=== PATIENT | female | born 1935 | race Caucasian/White ===

== ENCOUNTER 2017-03-26 21:13 | Inpatient (IN) ==
[2017-03-26 22:03] LABS: Basophils % 0.4 %; Eosinophils # 0.2 K/mcL (0.0-0.6); Eosinophils % 2.5 %; Hematocrit 35.8 % (35.3-44.9); Hemoglobin 11.5 g/dL (11.5-15.4); Immature Granulocytes % 0.1 % (0-4); Lymphocytes # 1.3 K/mcL (0.6-4.6); Lymphocytes % 18.5 %; Mean Corpuscular HGB Conc 32.1 g/dL (31.6-35.5); Mean Corpuscular Hemoglobin 29.3 pg (28.0-33.3); Mean Corpuscular Volume 91.1 fL (83.0-100.0); Monocytes # 0.6 K/mcL (0.0-1.3); Monocytes % 7.6 %; Neutrophils # 5.1 K/mcL (1.6-8.9); Platelet Count 179 K/mcL (140-400); Red Blood Count 3.93 M/mcL (3.82-4.97); Red Cell Distribution Width 13.3 % (11.5-14.5); Segmented Neutrophils % 70.9 %
[2017-03-26 22:10] LABS: Bilirubin,Urine Moderate (Negative); Blood,Urine Negative (Negative); Clarity,Urine Cloudy (Clear); Color,Urine Dark Yellow (Yellow); Glucose,Urine (UA) Normal (Normal); Ketones,Urine Negative (Negative); Leukocyte Esterase,Urine Moderate (Negative); Nitrite,Urine Positive (Negative); Protein,Urine Negative (Neg-Trace); Specific Gravity,Urine 1.017 (1.010-1.025); Urobilinogen,Urine Normal (Normal)
[2017-03-26 22:13] LABS: Bacteria,Urine Many per hpf (None-Few); Hyaline Casts,Urine None Seen per lpf (None-Few); RBC,Urine 0-3 per hpf (0-3)
[2017-03-26 22:19] LABS: Alanine Aminotransferase 329 Units/L (0-55); Albumin 3.3 g/dL (3.5-5.0); Albumin/Globulin Ratio 1.1 (1.1-2.2); Alkaline Phosphatase 511 Units/L (38-126); Aspartate Amino Transferase 144 Units/L (5-34); BUN/Creatinine Ratio 22 (6-26); Bilirubin,Direct 3.8 mg/dL (0.0-0.5); Bilirubin,Indirect 1.2 mg/dL (0.0-1.2); Blood Urea Nitrogen 18 mg/dL (7-20); Calcium 9.5 mg/dL (8.6-10.8); Carbon Dioxide 26 mEq/L (19-29); Chloride 104 mEq/L (98-109); Globulin 3.1 g/dL (2.4-3.5); Glucose 183 mg/dL (70-99); Lipase 356 Units/L (8-78); Osmolality,Calculated 297 (280-300); Sodium 140 mEq/L (136-145); Total Protein 6.4 g/dL (6.0-8.3); eGFR For African Americans > 60 (> 60); eGFR For Non-African Americans > 60 (> 60)
[2017-03-26 22:20] LABS: Squamous Epithelial Cell,Urine Few per lpf (None-Few)
--- NOTE | 2017-03-26 23:14 | Emergency Department Note ---
Disposition Clinical Impression: Pancreatitis, Transaminitis, Hyperbilirubinemia, Pancreatic mass, UTI (urinary tract infection) Disposition: Admitted As Inpatient Condition: Fair Time of Disposition: 01:26 Abdominal Pain HPI - General Chief Complaint: ED Abdominal Pain Stated Complaint: Upper ABD Pain Time Seen by Provider: 03/26/17 23:01 Source: patient Mode of arrival: ambulatory Limitations: no limitations Nursing Notes Reviewed: Yes Vital Signs Reviewed: Yes - History of Present Illness HPI Narrative: Patient presents to the ED with the chief complaint of epigastric abdominal pain. Onset was gradual about 4 weeks ago and has been progressively worsening. States it starts in the epigastrium, radiates up into her chest and through to her back. Associated with nausea and vomiting. Reports a last 3 days. She has not been able to eat or drink anything without causing excruciating pain. Pain is also worse with movement. No fever. Has had some weight loss. States that she just could not take the pain anymore. Has had a previous cholecystectomy but no other surgeries. No history of malignancy. No history of diabetes or coronary artery disease. No history of alcoholism or pancreatitis Pain Scale: 9 - Related Data Home Medications Medication Instructions Recorded Confirmed Benazepril HCl [Lotensin] 20 mg PO DAILY 03/27/17 03/27/17 Co Q-10 1 tab PO DAILY 03/27/17 03/27/17 Labetalol HCl 200 mg PO BID 03/27/17 03/27/17 Levothyroxine [Synthroid] 75 mcg PO 0630 03/27/17 03/27/17 Multivitamin 1 tab PO DAILY 03/27/17 03/27/17 amLODIPine [Norvasc] 5 mg PO BID 03/27/17 03/27/17 Allergies Allergy/AdvReac Type Severity Reaction Status Date / Time codeine AdvReac Vomiting Verified 03/26/17 21:33 All systems ED: reviewed and negative except as stated. Constitutional: Denies: fever Cardiovascular: Denies: chest pain Respiratory: Denies: dyspnea Gastrointestinal: Reports: abdominal pain, nausea, vomiting. Denies: diarrhea, constipation Abdominal Pain PMH - Past Medical History Medical history: Reports: GERD, hypertension Female Surgical History: Reports: cholecystectomy Psychiatric history: Reports: anxiety - Social History Smoking status: Never smoker Alcohol use: Reports: none Drug use: Reports: none Physical Exam - General Limitations: no limitations General appearance: alert, in no apparent distress, other (Patient appears pale and ill) - Head Head exam: atraumatic, normocephalic, normal inspection - Eye Eye exam: Present: normal appearance, PERRL, EOMI - ENT ENT exam: mucous membranes dry - Respiratory Respiratory exam: Present: normal lung sounds bilaterally - Cardiovascular Cardiovascular exam: Present: regular rate, normal rhythm, normal heart sounds - Abdominal Exam Abdominal exam: Present: soft, tenderness, distention, normal bowel sounds. Absent: guarding, rebound Abdominal tenderness: Present: epigastrium, moderate - Extremities Exam Extremities exam: Present: normal inspection, full ROM. Absent: tenderness, pedal edema - Neurological Exam Neurological exam: Present: alert, oriented X3 - Psychiatric Psychiatric exam: Present: normal affect, normal mood - Skin Skin exam: Present: warm, dry, intact, normal color Course Course Narrative: Patient presenting with concerns of her pancreatitis. Labs do show an elevated lipase, but also transaminitis and hyperbilirubinemia. We will obtain contrasted CT of abdomen and pelvis to evaluate for other etiologies such as obstructing stone versus tumor. Patient will be admitted to the hospital. IV fluids and analgesia. 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 We will admit for further workup and intractable nausea and vomiting. Has associated hyperbilirubinemia, transaminitis, elevated lipase. Vital Signs Temperature 99.5 F 03/26/17 21:29 Pulse Rate 77 03/26/17 21:29 Respiratory Rate 18 03/26/17 21:29 Blood Pressure 143/81 03/26/17 21:29 O2 Sat by Pulse Oximetry 97 03/26/17 21:29 Temperature 99.5 F 03/26/17 21:29 Pulse Rate 103 03/27/17 01:25 Respiratory Rate 16 03/27/17 01:25 Blood Pressure 141/66 03/27/17 01:25 O2 Sat by Pulse Oximetry 97 03/27/17 01:25 Oxygen Delivery Oxygen Delivery Room Air Abdominal Pain - Medical Records Medical records reviewed: Yes I reviewed the patient's medical records. - Lab Data Lab results reviewed: Yes I reviewed the patient's lab results. Result diagrams: 03/26/17 21:52 03/26/17 21:52 Lab Results 03/26/17 03/26/17 03/26/17 Range/Units 21:52 21:52 21:52 WBC 7.2 (4.3-11.1) K/mcL RBC 3.93 (3.82-4.97) M/mcL Hgb 11.5 (11.5-15.4) g/dL Hct 35.8 (35.3-44.9) % MCV 91.1 (83.0-100.0) fL MCH 29.3 (28.0-33.3) pg MCHC 32.1 (31.6-35.5) g/dL RDW 13.3 (11.5-14.5) % Plt Count 179 (140-400) K/mcL MPV 12.0 (9.4-12.4) fL Immature Gran % 0.1 (0-4) % Seg Neutrophils % 70.9 % Lymphocytes % 18.5 % Monocytes % 7.6 % Eosinophils % 2.5 % Basophils % 0.4 % Neutrophils # 5.1 (1.6-8.9) K/mcL Lymphocytes # 1.3 (0.6-4.6) K/mcL Monocytes # 0.6 (0.0-1.3) K/mcL Eosinophils # 0.2 (0.0-0.6) K/mcL Basophils # 0.0 (0.0-0.2) K/mcL Sodium 140 (136-145) mEq/L Potassium 4.0 (3.5-4.5) mEq/L Chloride 104 (98-109) mEq/L Carbon Dioxide 26 (19-29) mEq/L BUN 18 (7-20) mg/dL Creatinine 0.82 (0.57-1.11) mg/dL Est GFR ( Amer) > 60 (> 60) Est GFR (Non-Af Amer) > 60 (> 60) BUN/Creatinine Ratio 22 (6-26) Glucose 183 H (70-99) mg/dL Calculated Osmolality 297 (280-300) Calcium 9.5 (8.6-10.8) mg/dL Total Bilirubin 5.0 H (0.2-1.2) mg/dL Direct Bilirubin 3.8 H (0.0-0.5) mg/dL Indirect Bilirubin 1.2 (0.0-1.2) mg/dL AST 144 H (5-34) Units/L ALT 329 H (0-55) Units/L Alkaline Phosphatase 511 H (38-126) Units/L Troponin I 0.03 (0-0.03) ng/mL Serum Total Protein 6.4 (6.0-8.3) g/dL Albumin 3.3 L (3.5-5.0) g/dL Globulin 3.1 (2.4-3.5) g/dL Albumin/Globulin Ratio 1.1 (1.1-2.2) Lipase 356 H (8-78) Units/L Urine Color (Yellow) Urine Clarity (Clear) Urine pH (5.0-8.0) pH Units Ur Specific [place] (1.010-1.025) Urine Protein (Neg-Trace) mg/dL Urine Glucose (UA) (Normal) mg/dL Urine Ketones (Negative) mg/dL Urine Blood (Negative) Urine Nitrite (Negative) Urine Bilirubin (Negative) Urine Urobilinogen (Normal) mg/dL Ur Leukocyte Esterase (Negative) Urine Microscopic RBC (0-3) per hpf Urine Microscopic WBC (0-3) per hpf Ur Squamous Epith Cells (None-Few) per lpf Urine Bacteria (None-Few) per hpf Hyaline Casts (None-Few) per lpf Ur Culture Indicated? (NO) 03/26/17 Range/Units 21:56 WBC (4.3-11.1) K/mcL RBC (3.82-4.97) M/mcL Hgb (11.5-15.4) g/dL Hct (35.3-44.9) % MCV (83.0-100.0) fL MCH (28.0-33.3) pg MCHC (31.6-35.5) g/dL RDW (11.5-14.5) % Plt Count (140-400) K/mcL MPV (9.4-12.4) fL Immature Gran % (0-4) % Seg Neutrophils % % Lymphocytes % % Monocytes % % Eosinophils % % Basophils % % Neutrophils # (1.6-8.9) K/mcL Lymphocytes # (0.6-4.6) K/mcL Monocytes # (0.0-1.3) K/mcL Eosinophils # (0.0-0.6) K/mcL Basophils # (0.0-0.2) K/mcL Sodium (136-145) mEq/L Potassium (3.5-4.5) mEq/L Chloride (98-109) mEq/L Carbon Dioxide (19-29) mEq/L BUN (7-20) mg/dL Creatinine (0.57-1.11) mg/dL Est GFR ( Amer) (> 60) Est GFR (Non-Af Amer) (> 60) BUN/Creatinine Ratio (6-26) Glucose (70-99) mg/dL Calculated Osmolality (280-300) Calcium (8.6-10.8) mg/dL Total Bilirubin (0.2-1.2) mg/dL Direct Bilirubin (0.0-0.5) mg/dL Indirect Bilirubin (0.0-1.2) mg/dL AST (5-34) Units/L ALT (0-55) Units/L Alkaline Phosphatase (38-126) Units/L Troponin I (0-0.03) ng/mL Serum Total Protein (6.0-8.3) g/dL Albumin (3.5-5.0) g/dL Globulin (2.4-3.5) g/dL Albumin/Globulin Ratio (1.1-2.2) Lipase (8-78) Units/L Urine Color Dark Yellow (Yellow) Urine Clarity Cloudy A (Clear) Urine pH 7.0 (5.0-8.0) pH Units Ur Specific [place] 1.017 (1.010-1.025) Urine Protein Negative (Neg-Trace) mg/dL Urine Glucose (UA) Normal (Normal) mg/dL Urine Ketones Negative (Negative) mg/dL Urine Blood Negative (Negative) Urine Nitrite Positive A (Negative) Urine Bilirubin Moderate H (Negative) Urine Urobilinogen Normal (Normal) mg/dL Ur Leukocyte Esterase Moderate H (Negative) Urine Microscopic RBC 0-3 (0-3) per hpf Urine Microscopic WBC 3-5 H (0-3) per hpf Ur Squamous Epith Cells Few (None-Few) per lpf Urine Bacteria Many H (None-Few) per hpf Hyaline Casts None Seen (None-Few) per lpf Ur Culture Indicated? YES A (NO) - Radiology Data Radiology results reviewed: Yes I reviewed the patient's radiology results. Chest X-Ray 03/26/17 21:34 IMPRESSION: No acute disease. Hiatal hernia. D/ / Carlos Leahy MD / Carlos Leahy MD Interpreting Provider: Carlos Leahy MD - EKG Data EKG attestation: Yes I reviewed and interpreted this EKG. EKG results narrative: Sinus rhythm, rate 73, IN interval 175, QRS 100, QTC 424, left axis deviation, no acute ischemic changes. S.B.A.RJorge Luis - S.Eleni.Avila Situation: Demographics, MOA Background: Presenting Complaint, Relevant PMH, Meds, & Allergies Assessment: Vital Signs, Course and respsone to treatment, Exam Concerns, Patient/Family Expectation, Pertinant Lab Results, Outstanding Labs Recommendation: Barrier(s) to disposition, Recommendation based on pending studies, treatments, or consults S.B.A.RJorge Luis Report Given to: Dr. Jerman Barrett Repor Time: 01:27 Attestation Statement - Attestation Attestation: I, Trenton Rothman MD, personally evaluated this patient and discussed their management with the resident physician. I reviewed the resident's note and agree with the documented findings, medical decision making, and plan of care. 81-year-old female presents to the emergency department with a complaint of epigastric abdominal pain which started about 4 weeks ago and has gotten progressively worse. Pain is been much worse over the past 3 days. The pain radiates to her back. She complains of a lot of nausea but no actual vomiting. No diarrhea. No melena, hematemesis, or hematochezia. No urinary symptoms. She has possibly had some intermittent fever. Patient also admits to some weight loss over the past several months. On examination patient is a well-developed well-nourished elderly female in no acute distress. She is alert and oriented 3. There is no cyanosis or diaphoresis. Breath sounds are clear and equal bilaterally. Heart regular rate and rhythm. Abdomen is soft with normal bowel sounds. There is moderate epigastric tenderness on direct palpation. No guarding or rebound tenderness. Labs reviewed. Elevated lipase and hepatic enzymes. CT obtained and shows a mass in the head of the pancreas. The hospitalist, Dr. Stoll, was consulted and accepted admission of the patient.
[2017-03-26] MEDS ORDERED: 0.9 % Sodium Chloride 1,000 ML IVC ONE (23:15)
[2017-03-26] MEDS ORDERED: Ondansetron 4 MG/2 ML VIAL IVP ONE (23:15)
[2017-03-26] MEDS ORDERED: *HR* HYDROmorphone (PF) 1 MG/ML SYRINGE IVP ONE (23:15)
[2017-03-27] MEDS ORDERED: 0.9 % Sodium Chloride 1,000 ML IVC ONE (01:30)
[2017-03-27] MEDS ORDERED: Ondansetron 4 MG/2 ML VIAL IVP ONE (01:30)
[2017-03-27] MEDS ORDERED: Acetaminophen 325 MG TABLET PO PRN (02:14)
[2017-03-27] MEDS ORDERED: Naloxone 0.4 MG/ML INJ IVP PRN (02:14)
[2017-03-27] MEDS: *HR* HYDROmorphone (PF) 1 MG/ML SYRINGE IVP PRN ×5 (03:25→22:56)
[2017-03-27] MEDS: 0.9 % Sodium Chloride 1,000 ML IVC SCH ×3 (03:28→20:11)
--- NOTE | 2017-03-27 04:39 | Internal Med History&Physical ---
<Ralph Duque - Last Filed: 03/27/17 05:37> Date of Encounter: 03/27/17 Time of Encounter: 02:45 Assessment and Plan (1) Pancreatic mass Current visit: Yes Status: Acute Patient presents with findings concerning for pancreatitis and found to have pancreatic mass on CT with contrast of her abdomen. Patient does describe concerning symptoms including weight loss, night sweats, malaise, and chills that persisted for a significant amount of time. There is evidence, bile duct dilation, though no increased bilirubin seen on exams. We will consult GI for evaluation and possible ERCP for biliary stenting and/or pancreatic mass biopsy We will consult oncology for assistance in evaluation and management for suspected adenocarcinoma of pancreas We will treat acute pancreatitis with fluids, nausea, and pain control (2) Pancreatitis Current visit: Yes Status: Acute Patient reports abdominal pain, nausea and vomiting. Lipase was elevated to 356. Findings consistent with acute pancreatitis. Patient's current pancreatitis likely due to pancreatic mass. Patient will be made nothing by mouth Pain medication with hydromorphone Supplemental IV fluids at 100 mL an hour Pantoprazole Ondansetron for nausea Qualifiers: Chronicity: acute Pancreatitis type: other Acute pancreatitis complication: unspecified Qualified Code(s): K85.80 - Other acute pancreatitis without necrosis or infection (3) UTI (urinary tract infection) Current visit: Yes Status: Acute Patient's UA consistent with UTI with large amount of nitrites and moderate amount of leukoesterase. Patient will be continued on ceftriaxone daily Qualifiers: Urinary tract infection type: acute cystitis Hematuria presence: without hematuria Qualified Code(s): N30.00 - Acute cystitis without hematuria (4) DVT prophylaxis Current visit: Yes Status: Acute Due to possibility of ERCP with stent placement and/or biopsies will hold chemical prophylaxis and start intermittent pneumatic compression devices Internal Medicine - H&P: HPI Chief complaint: Nausea and abdominal pain Admitted From: Home Plans for Post Hospital Care: Home History of present illness: Ms. Hopson is a 81 year old female with prior medical history of hypertension , GERD, cholecystectomy who presents to [facility] after progressive worsening of epigastric pain and nausea. She states that this has been going on for almost a month now but that has gotten significantly worse in the last week. She reports that for the last 3-4 days she has not been able to eat or drink anything on account of her nausea and epigastric pain. She describes the pain as severe and beginning in the epigastric region radiating up her chest and down to her. Umbilical area. Although she has had nausea and emesis, she denies any hematemesis or coffee-ground emesis. Although this is been going on for 4 weeks, she reports that for the past several months she has been feeling general malaise and reports having a unintentional 15 pound weight loss or last 4 months. She also reports numbness timeframe having had more frequent episodes of night sweats and chills. More recently she also describes having tori-colored stools. She denies fevers, chest pain, shortness of breath, dysuria, hematochezia, melena. Past Med Surg Social Fam HX - Past Medical History Medical history: GERD, hypertension Psychiatric history: anxiety - Social History Smoking Status: Never smoker Smokeless Tobacco Status: No Alcohol use: none Drug use: none Internal Medicine - H&P: Meds Benazepril HCl [Lotensin] 20 mg PO DAILY 03/27/17 [History] Co Q-10 1 tab PO DAILY 03/27/17 [History] Labetalol HCl 200 mg PO BID 03/27/17 [History] Levothyroxine [Synthroid] 75 mcg PO 0630 03/27/17 [History] Multivitamin 1 tab PO DAILY 03/27/17 [History] amLODIPine [Norvasc] 5 mg PO BID 03/27/17 [History] cloNIDine HCl [Clonidine HCl] 0.3 mg PO HS 03/27/17 [History] 3 Allergy/AdvReac Type Severity Reaction Status Date / Time codeine AdvReac Vomiting Verified 03/26/17 21:33 All Systems PM: Gen: Denies fever, reports chills, reports weight loss, reports weakness today, denies fatigue CV: Reports chest pain radiating from the epigastrium, denies exertional chest pain or dyspnea, denies palpitations Resp: Denies shortness of breath, denies dyspnea, denies pleuritic pain, denies coughing, denies changes in phlegm production, denies wheeze GI: Reports nausea, denies vomiting, reports abdominal pain, denies constipation , denies diarrhea, reports tori-colored stools, denies hematochezia, denies melena MSK: Denies muscle weakness Neuro: Denies headache, denies confusion, denies focal weakness, denies numbness , denies tingling, denies vision changes Skin: Denies bruising, denies rash : Denies flank pain, denies dysuria, denies hematuria - Constitutional Vitals: Temp Pulse Resp BP Pulse Ox 97.6 F 64 16 179/80 97 03/27/17 03:26 03/27/17 03:26 03/27/17 03:26 03/27/17 03:26 03/27/17 03:26 Exam: General: Cooperative, pleasant, no acute distress, alert and oriented 3, answers questions appropriately HEENT: Normocephalic, atraumatic, neck supple, trachea midline, Conjunctiva pink , sclera anicteric, PERRL, oral mucosa dry, no orophargeal erythema or exudates Respiratory: No accessory muscle usage, clear to auscultation bilaterally, no wheezes/rhonchi/rales appreciated Cardiovascular: Regular rate and rhythm, S1 and S2 present, no murmurs/rubs/ gallops/clicks appreciated GI/abdominal: Nondistended, mild, diffuse tenderness, soft, normal bowel sounds , no peritoneal signs Extremities: No calf tenderness, noncyanotic, no pedal edema appreciated, warm, lower extremity pulses palpable and symmetrical Neurological: Alert and oriented 3, no facial droop, no focal deficits Skin: Dry, intact, normal color, no [place] or [place] Corado sign Internal Med - H&P Results - Labs CBC & Chem 7: 03/27/17 04:52 03/27/17 04:52 <Chastity Bhagat - Last Filed: 03/27/17 06:30> Date of Encounter: 03/27/17 Internal Medicine - H&P: HPI History of present illness: Ms. Hopson is a 81 year old female All Systems PM: A 10-system review of systems was performed and is negative for pertinent findings except as documented above in the HPI. - Constitutional Vitals: Temp Pulse Resp BP Pulse Ox 97.6 F 64 16 179/80 97 03/27/17 03:26 03/27/17 03:26 03/27/17 03:26 03/27/17 03:26 03/27/17 03:26 Internal Med - H&P Results - Labs CBC & Chem 7: 03/27/17 04:52 03/27/17 04:52 Labs: Short CBC 03/27/17 Range/Units 04:52 WBC 5.7 (4.3-11.1) K/mcL Hgb 10.6 L (11.5-15.4) g/dL Hct 32.7 L (35.3-44.9) % Plt Count 142 (140-400) K/mcL Neutrophils # 4.1 (1.6-8.9) K/mcL BMP 03/27/17 04:52 Sodium 139 Potassium 3.6 Chloride 106 Carbon Dioxide 24 BUN 17 Creatinine 0.74 Glucose 136 H Calcium 8.5 L Liver Function 03/27/17 Range/Units 04:52 Total Bilirubin 5.2 H (0.2-1.2) mg/dL AST 114 H (5-34) Units/L ALT 270 H (0-55) Units/L Alkaline Phosphatase 448 H (38-126) Units/L Albumin 2.8 L (3.5-5.0) g/dL - Attending Attestation I saw and examined the patient independently. I have discussed with resident Dr. Duque regarding management plan. I have reviewed and agree with the documentation. Patient has generalized weakness for 4 weeks. Increased nausea vomiting abdominal pain for [address] abdominal in emergency room shows pancreas tumor. Patient has obstructive jaundice and signs of pancreatitis. No signs of infection. Will place patient on nothing by mouth, IV fluid, pain management. Patient made aware of the CT result by ER doctor already. We will consult GI and oncology for further management.
[2017-03-27 05:04] LABS: Basophils % 0.3 %; Eosinophils # 0.1 K/mcL (0.0-0.6); Eosinophils % 1.9 %; Hematocrit 32.7 % (35.3-44.9); Hemoglobin 10.6 g/dL (11.5-15.4); Immature Granulocytes % 0.3 % (0-4); Immature Platelets 6.6 % (1.1-6.1); Lymphocytes % 17.5 %; Mean Corpuscular HGB Conc 32.4 g/dL (31.6-35.5); Mean Corpuscular Hemoglobin 30.4 pg (28.0-33.3); Mean Corpuscular Volume 93.7 fL (83.0-100.0); Mean Platelet Volume 12.1 fL (9.4-12.4); Monocytes # 0.5 K/mcL (0.0-1.3); Monocytes % 8.9 %; Neutrophils # 4.1 K/mcL (1.6-8.9); Platelet Count 142 K/mcL (140-400); Red Blood Count 3.49 M/mcL (3.82-4.97); Red Cell Distribution Width 13.7 % (11.5-14.5); Segmented Neutrophils % 71.1 %
[2017-03-27 05:20] LABS: Alanine Aminotransferase 270 Units/L (0-55); Albumin 2.8 g/dL (3.5-5.0); Alkaline Phosphatase 448 Units/L (38-126); Aspartate Amino Transferase 114 Units/L (5-34); BUN/Creatinine Ratio 23 (6-26); Bilirubin,Total 5.2 mg/dL (0.2-1.2); Blood Urea Nitrogen 17 mg/dL (7-20); Calcium 8.5 mg/dL (8.6-10.8); Carbon Dioxide 24 mEq/L (19-29); Chloride 106 mEq/L (98-109); Globulin 2.8 g/dL (2.4-3.5); Glucose 136 mg/dL (70-99); Magnesium 1.4 mg/dL (1.6-2.6); Osmolality,Calculated 292 (280-300); Phosphorous 1.9 mg/dL (2.3-4.7); Potassium 3.6 mEq/L (3.5-4.5); Sodium 139 mEq/L (136-145); Total Protein 5.6 g/dL (6.0-8.3); eGFR For African Americans > 60 (> 60); eGFR For Non-African Americans > 60 (> 60)
[2017-03-27] MEDS: Ondansetron 4 MG/2 ML VIAL IVP PRN ×2 (07:00→22:58)
[2017-03-27] MEDS: Pantoprazole 40 MG VIAL IVP SCH (09:03)
[2017-03-27 12:09] LABS: Prothrombin Time 10.8 Seconds (9.4-12.1)
[2017-03-27] MEDS ORDERED: Magnesium Sulfate 2 GM in D5% in Water 100 ML IVPB ONE (16:24)
--- NOTE | 2017-03-27 16:25 | Internal Med Progress Note ---
Date of Encounter: 03/27/17 Time of Encounter: 09:50 - Assessment and plan (1) Pancreatitis Current Visit: Yes Status: Acute Assessment and plan: Acute pancreatitis - causing abdominal pain, nausea and vomiting - symptoms slowly improving Clear liquid diet, IV fluids, IV Dilaudid as needed for pain, IV Zofran, IV Protonix Lipase - initially 356, now 108 UA - positive nitrite, moderate leukocyte esterase Total bilirubin - 5.2 CXR - no acute disease CT abdomen and pelvis - suggestive of pancreatic adenocarcinoma with biliary and pancreatic ductal dilation, diverticulosis, large hiatal hernia Continue to monitor closely, labs in a.m. NPO after midnight Qualifiers: Chronicity: acute Pancreatitis type: other Acute pancreatitis complication: unspecified Qualified Code(s): K85.80 - Other acute pancreatitis without necrosis or infection (2) Pancreatic mass Current Visit: Yes Status: Acute Assessment and plan: Newly diagnosed mass of the pancreatic head, measuring 2.1 x 2.8 cm - probably pancreatic adenocarcinoma With biliary and pancreatic ductal dilatation - hyperbilirubinemia and transaminitis Gastroenterology consult - patient will probably need ERCP NPO after midnight (3) Hyperbilirubinemia Current Visit: Yes Status: Acute Assessment and plan: Hyperbilirubinemia and transaminitis - probably obstructive, secondary to pancreatic mass Gastroenterology consult Repeat labs in a.m. (4) UTI (urinary tract infection) Current Visit: Yes Status: Acute Assessment and plan: UTI present on admission, likely gram-negative bacilli Continue empiric IV Rocephin, cultures pending Qualifiers: Urinary tract infection type: acute cystitis Hematuria presence: without hematuria Qualified Code(s): N30.00 - Acute cystitis without hematuria (5) DVT prophylaxis Current Visit: Yes Status: Acute Assessment and plan: Continue SCDs, ambulate - Time Spent With Patient 25 - 35 minutes - Subjective Interval history: Examined this morning. Patient is awake and alert. Not in any distress. Denies chest pain or shortness of breath. No fever. Hemodynamically stable. Complains of mild abdominal pain. Denies vomiting. Admitted for acute pancreatitis and newly diagnosed pancreatic mass. Oncology and gastroenterology consult pending. No other acute events or complaints. - Constitutional Vitals: Temp Pulse Resp BP Pulse Ox 98.7 F 87 16 109/61 95 03/27/17 15:20 03/27/17 15:20 03/27/17 15:20 03/27/17 15:20 03/27/17 15:20 General appearance: Present: cooperative, A&O X 3, pleasant, no acute distress, answers questions appropriately - Head Head exam: Present: atraumatic - Eye Eye exam: Present: EOMI - ENT ENT exam: Present: mucous membranes dry - Respiratory Respiratory exam: Present: CTAB. Absent: rales, rhonchi, wheezes, tachypnea - Cardiovascular Cardiovascular exam: Present: RRR, +S1, +S2 - GI/Abdominal GI/Abdominal exam: Present: soft, tenderness (Mild epigastric tenderness). Absent: distended, firm, guarding - Extremities Exam Extremities exam: Present: radial pulses palpable and symmetrical. Absent: calf tenderness, cyanotic, pedal edema - Neurological Exam Neurological exam: Present: alert, oriented X3, no focal deficits. Absent: facial droop, speech deficit Internal Medicine: Result - Labs CBC & Chem 7: 03/27/17 04:52 03/27/17 04:52 Labs: Short CBC 03/27/17 Range/Units 04:52 WBC 5.7 (4.3-11.1) K/mcL Hgb 10.6 L (11.5-15.4) g/dL Hct 32.7 L (35.3-44.9) % Plt Count 142 (140-400) K/mcL Neutrophils # 4.1 (1.6-8.9) K/mcL BMP 03/27/17 04:52 Sodium 139 Potassium 3.6 Chloride 106 Carbon Dioxide 24 BUN 17 Creatinine 0.74 Glucose 136 H Calcium 8.5 L Liver Function 03/27/17 Range/Units 04:52 Total Bilirubin 5.2 H (0.2-1.2) mg/dL AST 114 H (5-34) Units/L ALT 270 H (0-55) Units/L Alkaline Phosphatase 448 H (38-126) Units/L Albumin 2.8 L (3.5-5.0) g/dL - ABG Interpretation ABG results: PT/INR, D-dimer PT 10.8 Seconds (9.4-12.1) 03/27/17 11:58 - VTE Documentation of Mechanical Device: Intermittent pneumatic compression device Consult Discharge Plan - Plan Referrals: NONE,PCP [Primary Care Provider] -
[2017-03-28] MEDS: *HR* HYDROmorphone (PF) 1 MG/ML SYRINGE IVP PRN ×4 (03:31→21:01)
[2017-03-28 07:18] LABS: Alanine Aminotransferase 209 Units/L (0-55); Albumin 2.7 g/dL (3.5-5.0); Albumin/Globulin Ratio 0.9 (1.1-2.2); Alkaline Phosphatase 505 Units/L (38-126); Aspartate Amino Transferase 101 Units/L (5-34); BUN/Creatinine Ratio 13 (6-26); Bilirubin,Total 5.6 mg/dL (0.2-1.2); Blood Urea Nitrogen 10 mg/dL (7-20); Calcium 8.6 mg/dL (8.6-10.8); Carbon Dioxide 25 mEq/L (19-29); Chloride 108 mEq/L (98-109); Globulin 2.9 g/dL (2.4-3.5); Glucose 109 mg/dL (70-99); Magnesium 1.8 mg/dL (1.6-2.6); Osmolality,Calculated 292 (280-300); Potassium 3.7 mEq/L (3.5-4.5); Sodium 141 mEq/L (136-145); Total Protein 5.6 g/dL (6.0-8.3); eGFR For African Americans > 60 (> 60); eGFR For Non-African Americans > 60 (> 60)
[2017-03-28] MEDS: Pantoprazole 40 MG VIAL IVP SCH (08:49)
[2017-03-28] MEDS: Lisinopril 20 MG TABLET PO SCH (08:49)
[2017-03-28] MEDS: Multivit/Ca/Min/Fe/FA 1 TAB TABLET PO SCH (08:49)
[2017-03-28] MEDS: 0.9 % Sodium Chloride 1,000 ML IVC SCH (09:00)
--- NOTE | 2017-03-28 16:20 | Internal Med Progress Note ---
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 NPO after midnight for procedure Qualifiers: Chronicity: acute Pancreatitis type: other Acute pancreatitis complication: unspecified Qualified Code(s): K85.80 - Other acute pancreatitis without necrosis or infection (3) Pancreatic mass Current Visit: Yes Status: Acute Assessment and plan: Newly diagnosed mass of the pancreatic head, measuring 2.1 x 2.8 cm - probably pancreatic adenocarcinoma With biliary and pancreatic ductal dilatation - hyperbilirubinemia and transaminitis Gastroenterology consult - Scheduled for ERCP with stent placement in AM NPO after midnight Waiting on Heme Onc eval May consider to order CT of Chest for further work up , after discussing with Hem Onc (4) UTI (urinary tract infection) Current Visit: Yes Status: Acute Assessment and plan: Urine micro - G-ve rods Continue empiric IV Rocephin Qualifiers: Urinary tract infection type: acute cystitis Hematuria presence: without hematuria Qualified Code(s): N30.00 - Acute cystitis without hematuria (5) DVT prophylaxis Current Visit: Yes Status: Acute Assessment and plan: Continue SCDs, ambulate - Subjective Interval history: Ms. Hopson is a 81 year old female with prior medical history of hypertension , GERD, cholecystectomy who presents to [place] after progressive worsening of epigastric pain and nausea. She states that this has been going on for almost a month now but that has gotten significantly worse in the last week. She reports that for the last 3-4 days she has not been able to eat or drink anything on account of her nausea and epigastric pain. She describes the pain as severe and beginning in the epigastric region radiating up her chest and down to her. Umbilical area. Although she has had nausea and emesis, she denies any hematemesis or coffee-ground emesis. Although this is been going on for 4 weeks, she reports that for the past several months she has been feeling general malaise and reports having a unintentional 15 pound weight loss or last 4 months. She also reports numbness timeframe having had more frequent episodes of night sweats and chills. More recently she also describes having tori-colored stools. She denies fevers, chest pain, shortness of breath, dysuria, hematochezia, melena. Pt was admitted here for acute intractable abdominal pain with pancreatic head mass. Pt is alert, awake and O x 3, following all the commands. Denied any CP. Still has mild abdominal discomfort. No nausea / vomiting. Does c/o itching. Loss of appetite. Did loose significant weight in last 6 months. - Constitutional Vitals: Temp Pulse Resp BP Pulse Ox 98.8 F 85 16 186/92 95 03/28/17 14:37 03/28/17 14:37 03/28/17 14:37 03/28/17 14:52 03/28/17 14:37 General appearance: Present: cooperative, A&O X 3, pleasant, no acute distress, answers questions appropriately - Head Head exam: Present: atraumatic, normal inspection - Respiratory Respiratory exam: Present: decreased breath sounds, wheezes. Absent: respiratory distress, rhonchi - Cardiovascular Cardiovascular exam: Present: RRR, +S1, +S2. Absent: systolic murmur - Extremities Exam Extremities exam: Absent: calf tenderness, pedal edema, tenderness - Neurological Exam Neurological exam: Present: alert, oriented X3 - Psychiatric Psychiatric exam: Present: normal affect, normal mood Internal Medicine: Result - Labs CBC & Chem 7: 03/27/17 04:52 03/28/17 06:20 Labs: BMP 03/28/17 06:20 Sodium 141 Potassium 3.7 Chloride 108 Carbon Dioxide 25 BUN 10 Creatinine 0.75 Glucose 109 H Calcium 8.6 Liver Function 03/28/17 Range/Units 06:20 Total Bilirubin 5.6 H (0.2-1.2) mg/dL AST 101 H (5-34) Units/L ALT 209 H (0-55) Units/L Alkaline Phosphatase 505 H (38-126) Units/L Albumin 2.7 L (3.5-5.0) g/dL - ABG Interpretation ABG results: PT/INR, D-dimer PT 10.8 Seconds (9.4-12.1) 03/27/17 11:58 - VTE Documentation of Mechanical Device: Intermittent pneumatic compression device Consult Discharge Plan - Plan Referrals: NONE,PCP [Primary Care Provider] -
--- NOTE | 2017-03-28 18:09 | Oncology Inp Consult Note ---
Date of Encounter: 03/28/17 Time of Encounter: 17:00 Assessment and Plan (1) Pancreatic mass Status: Acute Assessment and plan: Acute pancreatitis secondary to pancreatic mass, further investigation with ERCP , GI has been consulted, stent placement and possible tissue diagnosis. CA 19-9, MRI imaging to be considered, she plans to go to [place] for surgery if indicated based on additional investigations Pain-on hydromorphone, PPI, under control. Follow up with results when available plan d/w patient and family in detail. - Data of Consult Requesting Physician: Hien Hernandez MD Primary Care Provider: PCP NONE - Consult Narrative Reason for consult: pancreatic mass History of present illness: Ms. Hopson is a 81 year old female with a medical history significant for pancreatitis, urinary tract infection, hypertension, gastroesophageal reflux disease, status post cholecystectomy hospitalized with abdominal pain and feeling sick for the last 3-4 days. She reports nausea associated with epigastric pain without any radiation to the back. Patient was noted to have elevated the Cornelius up to 5.2 AST ALT elevated a CT scan of the abdomen was done with IV contrast shows findings suggestive of pancreatic adenocarcinoma with ill -defined 2.1 x 2.8 cm mass in the pancreatic head with dilation off bile ducts and pancreatic duct with clear fat plane between the mass and vasculature. She is currently receiving treatment for acute pancreatitis, serum lipase was up to 356 with pain control and hydration. GI evaluation considered for possible ERCP. Past Med Surg Social Fam HX - Past Medical History Medical history: GERD, hypertension Psychiatric history: anxiety - Social History Smoking Status: Never smoker Smokeless Tobacco Status: No Alcohol use: none Drug use: none Medications and Allergies Benazepril HCl [Lotensin] 20 mg PO DAILY 03/27/17 [History] Labetalol HCl 200 mg PO BID 03/27/17 [History] Levothyroxine [Synthroid] 75 mcg PO 0630 03/27/17 [History] Multivit-Min/FA/Lycopen/Lutein [A Thru Z Select Multivit Tab] 1 each PO DAILY [History] Ubiquinol 100 mg PO DAILY 03/27/17 [History] amLODIPine [Norvasc] 5 mg PO BID 03/27/17 [History] cloNIDine HCl [Clonidine HCl] 0.3 mg PO HS 03/27/17 [History] 3 Allergy/AdvReac Type Severity Reaction Status Date / Time codeine AdvReac Vomiting Verified 03/26/17 21:33 Review of systems: as in HPI Oncology - Exam - Constitutional Vitals: Temp Pulse Resp BP Pulse Ox 98.8 F 85 16 186/92 95 03/28/17 14:37 03/28/17 14:37 03/28/17 14:37 03/28/17 14:52 03/28/17 14:37 General appearance: no acute distress, obese - Head Head exam: Present: atraumatic, normal inspection - Eye Eye exam: Present: sclera anicteric - ENT ENT exam: Present: mucous membranes moist - Neck Neck exam: Present: full ROM - Respiratory Respiratory exam: Present: CTAB - Cardiovascular Cardiovascular exam: Present: +S1, +S2 - GI/Abdominal GI/Abdominal exam: Present: normal bowel sounds, soft - Extremities Exam Extremities exam: Present: normal inspection - Neurological Exam Neurological exam: Present: alert, CN II-XII intact, oriented X3, no focal deficits Oncology - Results Labs: BMP 03/28/17 06:20 Sodium 141 Potassium 3.7 Chloride 108 Carbon Dioxide 25 BUN 10 Creatinine 0.75 Glucose 109 H Calcium 8.6 Liver Function 03/28/17 Range/Units 06:20 Total Bilirubin 5.6 H (0.2-1.2) mg/dL AST 101 H (5-34) Units/L ALT 209 H (0-55) Units/L Alkaline Phosphatase 505 H (38-126) Units/L Albumin 2.7 L (3.5-5.0) g/dL Consult Discharge Plan - Plan Referrals: NONE,PCP [Primary Care Provider] -
[2017-03-28] MEDS: Ondansetron 4 MG/2 ML VIAL IVP PRN (18:44)
[2017-03-28] MEDS: cloNIDine HCl 0.1 MG TABLET PO SCH (21:02)
[2017-03-28] MEDS: amLODIPine 5 MG TABLET PO SCH (21:02)
[2017-03-28] MEDS ORDERED: Ondansetron 4 MG/2 ML VIAL IVP PRN (22:14)
[2017-03-29 06:56] LABS: Basophils % 0.6 %; Eosinophils # 0.2 K/mcL (0.0-0.6); Eosinophils % 2.9 %; Hematocrit 29.4 % (35.3-44.9); Hemoglobin 9.5 g/dL (11.5-15.4); Immature Granulocytes % 0.2 % (0-4); Lymphocytes # 1.4 K/mcL (0.6-4.6); Lymphocytes % 27.4 %; Mean Corpuscular HGB Conc 32.3 g/dL (31.6-35.5); Mean Corpuscular Hemoglobin 30.2 pg (28.0-33.3); Mean Corpuscular Volume 93.3 fL (83.0-100.0); Mean Platelet Volume 12.3 fL (9.4-12.4); Monocytes # 0.5 K/mcL (0.0-1.3); Monocytes % 10.1 %; Platelet Count 136 K/mcL (140-400); Red Blood Count 3.15 M/mcL (3.82-4.97); Red Cell Distribution Width 14.2 % (11.5-14.5); Segmented Neutrophils % 58.8 %
[2017-03-29 07:14] LABS: Alanine Aminotransferase 164 Units/L (0-55); Albumin 2.4 g/dL (3.5-5.0); Albumin/Globulin Ratio 0.9 (1.1-2.2); Alkaline Phosphatase 450 Units/L (38-126); Aspartate Amino Transferase 86 Units/L (5-34); BUN/Creatinine Ratio 14 (6-26); Bilirubin,Total 5.2 mg/dL (0.2-1.2); Blood Urea Nitrogen 10 mg/dL (7-20); Calcium 8.4 mg/dL (8.6-10.8); Carbon Dioxide 26 mEq/L (19-29); Chloride 109 mEq/L (98-109); Globulin 2.6 g/dL (2.4-3.5); Glucose 119 mg/dL (70-99); Magnesium 1.6 mg/dL (1.6-2.6); Osmolality,Calculated 288 (280-300); Potassium 3.7 mEq/L (3.5-4.5); Sodium 139 mEq/L (136-145); eGFR For African Americans > 60 (> 60); eGFR For Non-African Americans > 60 (> 60)
[2017-03-29] MEDS ORDERED: *HR* Phenylephrine 10 MG/ML VIAL IVC ONE (08:57)
[2017-03-29] MEDS ORDERED: Ondansetron 4 MG/2 ML VIAL IVP ONE (08:57)
[2017-03-29] MEDS ORDERED: Lidocaine -MPF 2% 5 ML VIAL INFILT ONE (08:57)
[2017-03-29] MEDS ORDERED: *HR* Propofol 200 MG/20 ML VIAL IVP ONE (08:58)
[2017-03-29] MEDS: amLODIPine 5 MG TABLET PO SCH ×2 (09:10→20:55)
[2017-03-29] MEDS: Lisinopril 20 MG TABLET PO SCH ×2 (09:10→17:29)
[2017-03-29] MEDS: Multivit/Ca/Min/Fe/FA 1 TAB TABLET PO SCH (09:10)
[2017-03-29] MEDS: Pantoprazole 40 MG VIAL IVP SCH (09:13)
--- NOTE | 2017-03-29 11:05 | Anesthesia Evaluation PreOp ---
Date of Encounter: 03/29/17 Time of Encounter: 13:07 - Past History Planned Operation: ERCP Cardiac History: HTN Pulmonary History: Denies Any Significant HX BAR POINTER History: Denies Any Significant HX Other Medical History: Thyroid, GERD, Other (anxiety, pancreatic mass) Anesthesia History: No Prior Anesthetic Complications, Past Anesthesia Alcohol Use: none Drug use: none Medications and Allergies Benazepril HCl [Lotensin] 20 mg PO DAILY 03/27/17 [History] Labetalol HCl 200 mg PO BID 03/27/17 [History] Levothyroxine [Synthroid] 75 mcg PO 0630 03/27/17 [History] Multivit-Min/FA/Lycopen/Lutein [A Thru Z Select Multivit Tab] 1 each PO DAILY [History] Ubiquinol 100 mg PO DAILY 03/27/17 [History] amLODIPine [Norvasc] 5 mg PO BID 03/27/17 [History] cloNIDine HCl [Clonidine HCl] 0.3 mg PO HS 03/27/17 [History] 3 Allergy/AdvReac Type Severity Reaction Status Date / Time codeine AdvReac Vomiting Verified 03/26/17 21:33 - Meds/Allergy Pre-op Review Medications Reviewed: Yes Allergies Reviewed: Yes Beta Blockers on Current Med List: Yes If Beta Blockers taken, Date/Time (Last Dose taken): 03/29/2017 at 0913 Anesthesia Results - Labs 03/29/17 06:39 03/29/17 06:39 - Imaging EKG: report reviewed (04/30/2013 SR) Anesthesia Exam Vital Signs/O2 Sat/Glucose, Most Recent Temp Pulse Resp BP Pulse Ox 98.3 F 64 18 122/52 96 03/29/17 07:24 03/29/17 07:24 03/29/17 07:24 03/29/17 07:24 03/29/17 07:24 Blood Glucose* 119 Height: 5'2''/1.57 m Weight: 142 lbs/64.8 kg NPO (# of Hours): 8 Pain Scale: 0 Pain Scale Used: Numeric (1 - 10) - HEENT Pupil (Motor): EOMI Mallampati: II Teeth: Normal Denture Type: Lower: Partial Oral Opening: Greater than 3 - BAR POINTER LOC: Oriented BAR POINTER Motor: Normal RUE, Normal LUE, Normal RLE, Normal LLE, Normal Face BAR POINTER Sensory: Normal: RUE, LUE, RLE, LLE, Face - Cardiac Rhythm: Regular Murmur: None - Pulmonary Breath Sounds: bilateral Clear Respiratory Effort: Symmetrical Anesthesia Assess/Plan ASA Score: 2 Modified [place] Scale for Level of Consciousness: Cooperative, oriented, and tranquil Anesthetic Plan: General Monitoring Plan: Standard Monitors Recovery Plan: PACU
--- NOTE | 2017-03-29 12:25 | Electrocardiograph Report ---
[place] [id number] Test Date: 2017-03-26 Pat Name: Ivett Hopson Department: 105 Room: 3A63 Gender: F [employer]: : 1935 Requested By: Trenton Rothman Order Number: [id number] Reading MD: Aura Howe Measurements Intervals [place] Rate: 73 P: 93 IL: 175 QRS: -28 QRSD: 100 T: 47 QT: 399 QTc: 424 Interpretive Statements SINUS RHYTHM BORDERLINE LEFT AXIS DEVIATION [QRS AXIS < -20] Electronically Signed On 03-29-2017 12:23:48 EDT by Aura Howe
--- NOTE | 2017-03-29 12:55 | Gastroenterology Consult Note ---
<Tyrel España - Last Filed: 03/29/17 12:52> Date of Encounter: 03/29/17 Time of Encounter: 10:45 - Assessment and plan (1) Pancreatic mass Current Visit: Yes Status: Acute Assessment and plan: Plan for EUS and ERCP today, with possible biopsy and stent placement. Keep NPO. Continue to monitor CMP daily. CA-19-9 pending. (2) Hyperbilirubinemia Current Visit: Yes Status: Acute Assessment and plan: Secondary to pancreatic mass. (3) Pancreatitis Current Visit: Yes Status: Acute Assessment and plan: Continue pain control and antiemetics. Qualifiers: Chronicity: acute Pancreatitis type: other Acute pancreatitis complication: unspecified Qualified Code(s): K85.80 - Other acute pancreatitis without necrosis or infection - Time Spent With Patient Total time spent is greater than 50% in coordination of care (as documented) at patient's floor/unit and/or counseling patient: GI History of Present Illness - Data of Consult Patient: new to practice Consult date: 03/29/17 Requesting Physician: Hien Hernandez MD - Consult Narrative Reason for consult: Pancreatic tumor History of present illness: Ms. Hopson is a 81 year old female with PMHx of pancreatitis, UTI, HTN, GERD , s/p cholecystectomy 11/2006 who presented with worsening epigastric pain and nausea which had been going on for the past several weeks. She has been unable to eat or drink anything in the last 3-4 days due to her nausea and epigastric pain. She denies any hematemesis or coffee-ground emesis. She denies fevers, chest pain, shortness of breath, diarrhea, melena, or hematochezia. She does report an unintentional weight loss of 15 pounds over the last [address] scan of the abdomen was done with IV contrast shows findings suggestive of pancreatic adenocarcinoma with ill-defined 2.1 x 2.8 cm mass in the pancreatic head with dilation off bile ducts and pancreatic duct with clear fat plane between the mass and superior mesenteric vein, no liver lesions noted. Procedures: None NSAIDs: None Anticoagulation: None Past Med Surg Social Fam HX - Past Medical History Medical history: GERD, hypertension Psychiatric history: anxiety - Social History Smoking Status: Never smoker Smokeless Tobacco Status: No Alcohol use: none Drug use: none - Gastrointestinal Gastrointestinal: Present: as per HPI - Constitutional Constitutional: as per HPI - EENT Eyes: as per HPI Ears: Present: as per HPI Nose, mouth and throat: Present: as per HPI - Cardiovascular Cardiovascular ROS: Present: as per HPI - Respiratory Respiratory IM: Present: as per HPI - Genitourinary Genitourinary: Absent: change in color, Urinary frequency - Neurological ROS Neurological GI: Present: as per HPI - Hematologic/Lymphatic Hematologic/Lymphatic pediatric: Present: as per HPI - Musculoskeletal Musculoskeletal ROS GI: Present: as per HPI - Integumentary Integumentary GI: Present: as per HPI - Psychiatric ROS Psychiatric GI: Present: as per HPI - Endocrine Endocrine IM: Present: as per HPI - Constitutional Vitals: Temp Pulse Resp BP Pulse Ox 98.1 F 74 18 143/54 94 03/29/17 11:53 03/29/17 11:53 03/29/17 11:53 03/29/17 11:53 03/29/17 11:53 General appearance: Present: cooperative, A&O X 3, no acute distress, answers questions appropriately - Head Head exam: Present: atraumatic, normocephalic - Eye Eye exam: Present: normal appearance, sclera anicteric - ENT ENT exam: Present: mucous membranes dry - Neck Neck exam general surgery: Present: normal inspection, trachea midline - Respiratory Respiratory exam: Present: CTAB - Cardiovascular Cardiovascular exam: Present: RRR, +S1, +S2 - GI/Abdominal GI/Abdominal exam: Present: normal bowel sounds, soft, tenderness (epigastric, RUQ), no peritoneal signs. Absent: distended, firm, guarding - Rectal Rectal exam: Present: deferred - Extremities Exam Extremities exam: Present: warm - Neurological Exam Neurological exam: Present: no focal deficits - Psychiatric Psychiatric exam: Present: normal affect, normal mood - Skin Skin exam: Present: dry, intact, warm Results - Labs CBC & Chem 7: 03/29/17 06:39 03/29/17 06:39 Labs: Last Result Calcium 8.4 mg/dL (8.6-10.8) L 03/29/17 06:39 Troponin I 0.03 ng/mL (0-0.03) 03/26/17 21:52 Entire Visit Hgb 9.5 g/dL (11.5-15.4) L 03/29/17 06:39 Hct 29.4 % (35.3-44.9) L 03/29/17 06:39 PT 10.8 Seconds (9.4-12.1) 03/27/17 11:58 Total Bilirubin 5.2 mg/dL (0.2-1.2) H 03/29/17 06:39 AST 86 Units/L (5-34) H 03/29/17 06:39 ALT 164 Units/L (0-55) H 03/29/17 06:39 Lipase 108 Units/L (8-78) H 03/27/17 04:52 - ABG ABG results: PT/INR, D-dimer PT 10.8 Seconds (9.4-12.1) 03/27/17 11:58 Consult Discharge Plan - Plan Referrals: NONE,PCP [Primary Care Provider] - <Merary Bravo - Last Filed: 03/29/17 17:42> Date of Encounter: 03/29/17 Time of Encounter: 12:30 - Time Spent With Patient Total time spent is greater than 50% in coordination of care (as documented) at patient's floor/unit and/or counseling patient: GI History of Present Illness - Data of Consult Requesting Physician: Hien Hernandez MD - Consult Narrative History of present illness: Ms. Hopson is a 81 year old female - Constitutional Vitals: Temp Pulse Resp BP Pulse Ox 98.0 F 80 16 170/78 95 03/29/17 17:11 03/29/17 17:11 03/29/17 17:11 03/29/17 17:11 03/29/17 17:11 Results - Labs CBC & Chem 7: 03/29/17 06:39 03/29/17 06:39 Labs: Last Result Calcium 8.4 mg/dL (8.6-10.8) L 03/29/17 06:39 Troponin I 0.03 ng/mL (0-0.03) 03/26/17 21:52 Entire Visit Hgb 9.5 g/dL (11.5-15.4) L 03/29/17 06:39 Hct 29.4 % (35.3-44.9) L 03/29/17 06:39 PT 10.8 Seconds (9.4-12.1) 03/27/17 11:58 Total Bilirubin 5.2 mg/dL (0.2-1.2) H 03/29/17 06:39 AST 86 Units/L (5-34) H 03/29/17 06:39 ALT 164 Units/L (0-55) H 03/29/17 06:39 Lipase 108 Units/L (8-78) H 03/27/17 04:52 - ABG ABG results: PT/INR, D-dimer PT 10.8 Seconds (9.4-12.1) 03/27/17 11:58 - Impressions Impressions Cath/Invasive Procedure 03/29/17 15:37 IMPRESSION: Intraoperative fluoroscopy provided. Please refer to the procedure report for further details. D/ / Pavel Miles MD / Pavel Miles MD Interpreting Provider: Pavel Miles MD - Attending Attestation I examined this patient and my medical decision-making was reviewed with the Resident Physician. I agree with the documented findings, disposition and treatment plan as described except to the extent set forth below.
--- NOTE | 2017-03-29 16:09 | Anesthesia Evaluation Post Op ---
Date of Encounter: 03/29/17 Time of Encounter: 16:08 - Vital Signs Vital Signs: Vital Signs/O2 Sat, Most Current Temp Pulse Resp BP Pulse Ox 97.4 F L 87 18 161/84 95 03/29/17 15:44 03/29/17 16:04 03/29/17 16:04 03/29/17 16:04 03/29/17 16:04 - Lungs Lungs: Clear Ascult./Percussion - Airway Airway: Non-obstructed - Cardiovascular Regular Rate - Mental Status Mental Status: Asleep with brisk response to light stimulation - Pain Pain Scale: 0 Pain Scale used: Numeric (1 - 10) - Nausea Vomiting Nausea Vomiting: Not Present - Hydration Hydration: NPO, Has not voided - Discharge PostOp Status: Transfer Patient to floor
--- NOTE | 2017-03-29 17:21 | Internal Med Progress Note ---
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 Tolerating diet well Qualifiers: Chronicity: acute Pancreatitis type: other Acute pancreatitis complication: unspecified Qualified Code(s): K85.80 - Other acute pancreatitis without necrosis or infection (3) Pancreatic mass Current Visit: Yes Status: Acute Assessment and plan: Newly diagnosed mass of the pancreatic head, measuring 2.1 x 2.8 cm - probably pancreatic adenocarcinoma With biliary and pancreatic ductal dilatation - hyperbilirubinemia and transaminitis GI and Heme Onc on board (4) UTI (urinary tract infection) Current Visit: Yes Status: Acute Assessment and plan: Urine micro - Richards sensitive Strep pneumonia / [place] Continue empiric IV Rocephin Qualifiers: Urinary tract infection type: acute cystitis Hematuria presence: without hematuria Qualified Code(s): N30.00 - Acute cystitis without hematuria (5) DVT prophylaxis Current Visit: Yes Status: Acute Assessment and plan: Continue SCDs, ambulate - Subjective Interval history: Ms. Hopson is a 81 year old female with prior medical history of hypertension , GERD, cholecystectomy who presents to [place] after progressive worsening of epigastric pain and nausea. She states that this has been going on for almost a month now but that has gotten significantly worse in the last week. She reports that for the last 3-4 days she has not been able to eat or drink anything on account of her nausea and epigastric pain. She describes the pain as severe and beginning in the epigastric region radiating up her chest and down to her. Umbilical area. Although she has had nausea and emesis, she denies any hematemesis or coffee-ground emesis. Although this is been going on for 4 weeks, she reports that for the past several months she has been feeling general malaise and reports having a unintentional 15 pound weight loss or last 4 months. She also reports numbness timeframe having had more frequent episodes of night sweats and chills. More recently she also describes having tori-colored stools. She denies fevers, chest pain, shortness of breath, dysuria, hematochezia, melena. Pt was admitted here for acute intractable abdominal pain with pancreatic head mass. Pt is alert, awake and O x 3, following all the commands. Denied any CP. She denied any abdominal discomfort. No nausea / vomiting. still c/o itching. Loss of appetite. - Constitutional Vitals: Temp Pulse Resp BP Pulse Ox 98.0 F 80 16 170/78 95 03/29/17 17:11 03/29/17 17:11 03/29/17 17:11 03/29/17 17:11 03/29/17 17:11 General appearance: Present: cooperative, A&O X 3, pleasant, no acute distress, answers questions appropriately - Head Head exam: Present: atraumatic, normal inspection - Neck Neck exam general surgery: Present: supple - Respiratory Respiratory exam: Present: decreased breath sounds. Absent: rales, respiratory distress, rhonchi, wheezes - Cardiovascular Cardiovascular exam: Present: RRR, +S1, +S2. Absent: systolic murmur - GI/Abdominal GI/Abdominal exam: Present: normal bowel sounds, soft. Absent: rebound, rigid, tenderness - Extremities Exam Extremities exam: Absent: calf tenderness, pedal edema, tenderness - Neurological Exam Neurological exam: Present: alert, oriented X3 - Psychiatric Psychiatric exam: Present: normal affect, normal mood Internal Medicine: Result - Labs CBC & Chem 7: 03/29/17 06:39 03/29/17 06:39 Labs: Short CBC 03/29/17 Range/Units 06:39 WBC 5.1 (4.3-11.1) K/mcL Hgb 9.5 L (11.5-15.4) g/dL Hct 29.4 L (35.3-44.9) % Plt Count 136 L (140-400) K/mcL Neutrophils # 3.0 (1.6-8.9) K/mcL BMP 03/29/17 06:39 Sodium 139 Potassium 3.7 Chloride 109 Carbon Dioxide 26 BUN 10 Creatinine 0.69 Glucose 119 H Calcium 8.4 L Liver Function 03/29/17 Range/Units 06:39 Total Bilirubin 5.2 H (0.2-1.2) mg/dL AST 86 H (5-34) Units/L ALT 164 H (0-55) Units/L Alkaline Phosphatase 450 H (38-126) Units/L Albumin 2.4 L (3.5-5.0) g/dL - ABG Interpretation ABG results: PT/INR, D-dimer PT 10.8 Seconds (9.4-12.1) 03/27/17 11:58 - Impressions Impressions Cath/Invasive Procedure 03/29/17 15:37 IMPRESSION: Intraoperative fluoroscopy provided. Please refer to the procedure report for further details. D/ / Pavel Miles MD / Pavel Miles MD Interpreting Provider: Pavel Miles MD - VTE Documentation of Mechanical Device: Intermittent pneumatic compression device Consult Discharge Plan - Plan Referrals: NONE,PCP [Primary Care Provider] -
--- NOTE | 2017-03-29 17:44 | Procedure Note ---
Date of procedure: 03/29/17 Pre-op diagnosis: Panc mass Procedure: EUS: Status post-FNA of the pancreatic head lesion preliminary result positive for tumor. Await final pathology ERCP: Distal CBD stricture status post stenting with metal stent 6 cmx 10 mm. Follow LFTs in the morning. If patient is doing okay then can be discharged with follow-up with Dr. Vega as outpatient
[2017-03-29] MEDS: cloNIDine HCl 0.1 MG TABLET PO SCH (20:55)
[2017-03-29] MEDS: *HR* HYDROmorphone (PF) 1 MG/ML SYRINGE IVP PRN (21:01)
[2017-03-30 06:26] LABS: Basophils % 0.3 %; Eosinophils % 0.3 %; Hematocrit 28.9 % (35.3-44.9); Hemoglobin 9.2 g/dL (11.5-15.4); Immature Granulocytes % 0.4 % (0-4); Lymphocytes # 1.4 K/mcL (0.6-4.6); Lymphocytes % 20.2 %; Mean Corpuscular HGB Conc 31.8 g/dL (31.6-35.5); Mean Corpuscular Hemoglobin 29.6 pg (28.0-33.3); Mean Corpuscular Volume 92.9 fL (83.0-100.0); Mean Platelet Volume 12.5 fL (9.4-12.4); Monocytes # 0.7 K/mcL (0.0-1.3); Monocytes % 9.3 %; Neutrophils # 4.9 K/mcL (1.6-8.9); Platelet Count 160 K/mcL (140-400); Red Blood Count 3.11 M/mcL (3.82-4.97); Red Cell Distribution Width 14.4 % (11.5-14.5); Segmented Neutrophils % 69.5 %
[2017-03-30 06:44] LABS: Alanine Aminotransferase 135 Units/L (0-55); Albumin 2.2 g/dL (3.5-5.0); Albumin/Globulin Ratio 0.8 (1.1-2.2); Alkaline Phosphatase 429 Units/L (38-126); Aspartate Amino Transferase 64 Units/L (5-34); BUN/Creatinine Ratio 18 (6-26); Bilirubin,Total 2.6 mg/dL (0.2-1.2); Blood Urea Nitrogen 14 mg/dL (7-20); Calcium 8.3 mg/dL (8.6-10.8); Carbon Dioxide 26 mEq/L (19-29); Chloride 106 mEq/L (98-109); Globulin 2.7 g/dL (2.4-3.5); Glucose 152 mg/dL (70-99); Magnesium 1.5 mg/dL (1.6-2.6); Osmolality,Calculated 291 (280-300); Potassium 3.9 mEq/L (3.5-4.5); Sodium 139 mEq/L (136-145); Total Protein 4.9 g/dL (6.0-8.3); eGFR For African Americans > 60 (> 60); eGFR For Non-African Americans > 60 (> 60)
[2017-03-30] MEDS: Multivit/Ca/Min/Fe/FA 1 TAB TABLET PO SCH (08:41)
[2017-03-30] MEDS: amLODIPine 5 MG TABLET PO SCH ×2 (08:41→20:53)
[2017-03-30] MEDS: Pantoprazole 40 MG VIAL IVP SCH (08:41)
[2017-03-30] MEDS: Lisinopril 20 MG TABLET PO SCH (08:41)
[2017-03-30] MEDS ORDERED: Magnesium Sulfate 2 GM in D5% in Water 100 ML IVPB ONE (11:06)
--- NOTE | 2017-03-30 14:15 | Internal Med Progress Note ---
Date of Encounter: 03/30/17 Time of Encounter: 14:12 - Assessment and plan (1) Obstructive jaundice Current Visit: Yes Status: Acute Assessment and plan: Due to pancreatic head tumor.. mostly adenocarcinoma of pancreas GI is on board Had ERCP on 03/29/17 with CBD stent and pancreatic biopsy cont close monitoring for now LFT's slightly better today avoid hepato toxic meds Will talk to GI and Heme Onc about further plan of care Biopsy results are still pending (2) Pancreatitis Current Visit: Yes Status: Acute Assessment and plan: Due to pancreatic mass mostly Improving Lipase - initially 356, now 108 tolerating diet well Continue to monitor closely. Tolerating diet well Qualifiers: Chronicity: acute Pancreatitis type: other Acute pancreatitis complication: unspecified Qualified Code(s): K85.80 - Other acute pancreatitis without necrosis or infection (3) Pancreatic mass Current Visit: Yes Status: Acute Assessment and plan: Newly diagnosed mass of the pancreatic head, measuring 2.1 x 2.8 cm - probably pancreatic adenocarcinoma With biliary and pancreatic ductal dilatation - hyperbilirubinemia and transaminitis s/p Pancreatic tumor biopsy waiting on pathology results GI and Heme Onc on board (4) UTI (urinary tract infection) Current Visit: Yes Status: Acute Assessment and plan: Urine micro - Richards sensitive Strep pneumonia / Kle[place]se[place] Continue empiric IV Rocephin Qualifiers: Urinary tract infection type: acute cystitis Hematuria presence: without hematuria Qualified Code(s): N30.00 - Acute cystitis without hematuria (5) DVT prophylaxis Current Visit: Yes Status: Acute Assessment and plan: Continue SCDs, ambulate - Subjective Interval history: Ms. Hopson is a 81 year old female with prior medical history of hypertension , GERD, cholecystectomy who presents to [place] after progressive worsening of epigastric pain and nausea. She states that this has been going on for almost a month now but that has gotten significantly worse in the last week. She reports that for the last 3-4 days she has not been able to eat or drink anything on account of her nausea and epigastric pain. She describes the pain as severe and beginning in the epigastric region radiating up her chest and down to her. Umbilical area. Although she has had nausea and emesis, she denies any hematemesis or coffee-ground emesis. Although this is been going on for 4 weeks, she reports that for the past several months she has been feeling general malaise and reports having a unintentional 15 pound weight loss or last 4 months. She also reports numbness timeframe having had more frequent episodes of night sweats and chills. More recently she also describes having tori-colored stools. She denies fevers, chest pain, shortness of breath, dysuria, hematochezia, melena. Pt was admitted here for acute intractable abdominal pain with pancreatic head mass. Pt is alert, awake and O x 3, following all the commands. Denied any CP. She denied any abdominal discomfort. No nausea / vomiting. Feels better today and tolerating PO intake well. - Constitutional Vitals: Temp Pulse Resp BP Pulse Ox 98.2 F 72 17 158/74 96 03/30/17 11:53 03/30/17 11:53 03/30/17 11:53 03/30/17 11:53 03/30/17 11:53 General appearance: Present: cooperative, A&O X 3, pleasant, no acute distress, answers questions appropriately - Head Head exam: Present: atraumatic, normal inspection - Respiratory Respiratory exam: Present: CTAB. Absent: accessory muscle use, rales, rhonchi, wheezes - Cardiovascular Cardiovascular exam: Present: RRR, +S1, +S2. Absent: diastolic murmur, gallop, rubs, systolic murmur - GI/Abdominal GI/Abdominal exam: Present: normal bowel sounds, soft. Absent: distended, rebound, rigid, tenderness - Extremities Exam Extremities exam: Absent: calf tenderness, pedal edema, tenderness - Neurological Exam Neurological exam: Present: alert, oriented X3 - Psychiatric Psychiatric exam: Present: normal affect, normal mood Internal Medicine: Result - Labs CBC & Chem 7: 03/30/17 05:58 03/30/17 05:58 Labs: Short CBC 03/30/17 Range/Units 05:58 WBC 7.1 (4.3-11.1) K/mcL Hgb 9.2 L (11.5-15.4) g/dL Hct 28.9 L (35.3-44.9) % Plt Count 160 (140-400) K/mcL Neutrophils # 4.9 (1.6-8.9) K/mcL BMP 03/30/17 05:58 Sodium 139 Potassium 3.9 Chloride 106 Carbon Dioxide 26 BUN 14 Creatinine 0.77 Glucose 152 H Calcium 8.3 L Liver Function 03/30/17 Range/Units 05:58 Total Bilirubin 2.6 H (0.2-1.2) mg/dL AST 64 H (5-34) Units/L ALT 135 H (0-55) Units/L Alkaline Phosphatase 429 H (38-126) Units/L Albumin 2.2 L (3.5-5.0) g/dL - ABG Interpretation ABG results: PT/INR, D-dimer PT 10.8 Seconds (9.4-12.1) 03/27/17 11:58 - Impressions Impressions Cath/Invasive Procedure 03/29/17 15:37 IMPRESSION: Intraoperative fluoroscopy provided. Please refer to the procedure report for further details. D/ / Pavel Miles MD / Pavel Miles MD Interpreting Provider: Pavel Miles MD - VTE Documentation of Mechanical Device: Intermittent pneumatic compression device Consult Discharge Plan - Plan Referrals: NONE,PCP [Primary Care Provider] -
[2017-03-30] MEDS: *HR* HYDROmorphone (PF) 1 MG/ML SYRINGE IVP PRN ×2 (15:51→20:54)
[2017-03-30] MEDS: cloNIDine HCl 0.1 MG TABLET PO SCH (20:53)
[2017-03-31 06:19] LABS: Basophils # 0.1 K/mcL (0.0-0.2); Basophils % 0.7 %; Eosinophils # 0.3 K/mcL (0.0-0.6); Eosinophils % 4.4 %; Hematocrit 29.2 % (35.3-44.9); Hemoglobin 9.4 g/dL (11.5-15.4); Immature Granulocytes % 0.3 % (0-4); Lymphocytes # 2.1 K/mcL (0.6-4.6); Lymphocytes % 29.3 %; Mean Corpuscular HGB Conc 32.2 g/dL (31.6-35.5); Mean Corpuscular Hemoglobin 30.2 pg (28.0-33.3); Mean Corpuscular Volume 93.9 fL (83.0-100.0); Mean Platelet Volume 11.8 fL (9.4-12.4); Monocytes # 0.7 K/mcL (0.0-1.3); Monocytes % 9.2 %; Platelet Count 168 K/mcL (140-400); Red Blood Count 3.11 M/mcL (3.82-4.97); Red Cell Distribution Width 14.5 % (11.5-14.5); Segmented Neutrophils % 56.1 %
[2017-03-31 06:32] LABS: Alanine Aminotransferase 111 Units/L (0-55); Albumin 2.3 g/dL (3.5-5.0); Albumin/Globulin Ratio 0.8 (1.1-2.2); Alkaline Phosphatase 369 Units/L (38-126); Aspartate Amino Transferase 47 Units/L (5-34); BUN/Creatinine Ratio 20 (6-26); Bilirubin,Total 2.1 mg/dL (0.2-1.2); Blood Urea Nitrogen 14 mg/dL (7-20); Calcium 8.5 mg/dL (8.6-10.8); Carbon Dioxide 29 mEq/L (19-29); Chloride 108 mEq/L (98-109); Globulin 2.9 g/dL (2.4-3.5); Glucose 103 mg/dL (70-99); Magnesium 1.6 mg/dL (1.6-2.6); Osmolality,Calculated 293 (280-300); Potassium 3.8 mEq/L (3.5-4.5); Sodium 141 mEq/L (136-145); Total Protein 5.2 g/dL (6.0-8.3); eGFR For African Americans > 60 (> 60); eGFR For Non-African Americans > 60 (> 60)
[2017-03-31] MEDS: amLODIPine 5 MG TABLET PO SCH (07:47)
[2017-03-31] MEDS: Multivit/Ca/Min/Fe/FA 1 TAB TABLET PO SCH (07:47)
[2017-03-31] MEDS: Lisinopril 20 MG TABLET PO SCH (07:47)
[2017-03-31 10:15] VITALS: BP 106/62
--- NOTE | 2017-03-31 13:21 | Discharge Summary ---
Date of Encounter: 03/31/17 Time of Encounter: 13:15 - Discharge Diagnosis (1) Obstructive jaundice Priority: Primary Status: Acute (2) Pancreatitis Priority: Primary Status: Acute Qualifiers: Chronicity: acute Pancreatitis type: other Acute pancreatitis complication: unspecified Qualified Code(s): K85.80 - Other acute pancreatitis without necrosis or infection (3) Pancreatic mass Priority: Primary Status: Acute (4) UTI (urinary tract infection) Priority: Primary Status: Acute Qualifiers: Urinary tract infection type: acute cystitis Hematuria presence: without hematuria Qualified Code(s): N30.00 - Acute cystitis without hematuria (5) Essential hypertension Priority: Secondary Status: Acute (6) GERD (gastroesophageal reflux disease) Priority: Secondary Status: Acute Qualifiers: Esophagitis presence: without esophagitis Qualified Code(s): K21.9 - Gastro -esophageal reflux disease without esophagitis - Discharge Medications Prescriptions: Oxycodone HCl [Oxaydo] 5 mg PO Q8HR PRN #15 tab PRN Reason: Pain Amoxicillin/Clavulanate [Augmentin] 875 mg PO BIDWM #6 tablet Omeprazole [PriLOSEC] 20 mg PO DAILY #30 Home Medications: Benazepril HCl [Lotensin] 20 mg PO DAILY 03/27/17 [History] Labetalol HCl 200 mg PO BID 03/27/17 [History] Levothyroxine [Synthroid] 75 mcg PO 0630 03/27/17 [History] Multivit-Min/FA/Lycopen/Lutein [A Thru Z Select Multivit Tab] 1 each PO DAILY [History] Ubiquinol 100 mg PO DAILY 03/27/17 [History] amLODIPine [Norvasc] 5 mg PO BID 03/27/17 [History] cloNIDine HCl [Clonidine HCl] 0.3 mg PO HS 03/27/17 [History] Amoxicillin/Clavulanate [Augmentin] 875 mg PO BIDWM #6 tablet 03/31/17 [Rx] Omeprazole [PriLOSEC] 20 mg PO DAILY #30 03/31/17 [Rx] Oxycodone HCl [Oxaydo] 5 mg PO Q8HR PRN #15 tab 03/31/17 [Rx] Allergies/Adverse Reactions: 3 Allergy/AdvReac Type Severity Reaction Status Date / Time codeine AdvReac Vomiting Verified 03/26/17 21:33 Date of admission: 03/28/17 16:00 Primary care physician: PCP NONE - Patient Status Disposition: Home, Self-Care Condition: Good Overall status at discharge: patient is back to baseline - Discharge Instructions Follow Up With: NONE,PCP [Primary Care Provider] - Ernie Gant MD [Partnered Physician] - Merary Bravo MD [Partnered Physician] - Additional Instructions: Need to f/u with Dr. Bravo in 3-5 days Need to f/u with Dr. Gant in 3-5 days Need to f/u with PCP in one week - Diet and Activity Activity: increase activity as tolerated Diet: low salt diet Hospital course: Ms. Hopson is a 81 year old female with prior medical history of hypertension , GERD, cholecystectomy who presents to [facility] after progressive worsening of epigastric pain and nausea. She states that this has been going on for almost a month now but that has gotten significantly worse in the last week. She reports that for the last 3-4 days she has not been able to eat or drink anything on account of her nausea and epigastric pain. She describes the pain as severe and beginning in the epigastric region radiating up her chest and down to her. Umbilical area. Although she has had nausea and emesis, she denies any hematemesis or coffee-ground emesis. Although this is been going on for 4 weeks, she reports that for the past several months she has been feeling general malaise and reports having a unintentional 15 pound weight loss or last 4 months. She also reports numbness timeframe having had more frequent episodes of night sweats and chills. More recently she also describes having tori-colored stools. She denies fevers, chest pain, shortness of breath, dysuria, hematochezia, melena. Pt was admitted here for acute intractable abdominal pain with pancreatic head mass. Her CT of Abd showed mass of the pancreatic head, measuring 2.1 x 2.8 cm - probably pancreatic adenocarcinoma. Pt was placed on NPO initially and started her symptomatic and supportive care. Her LFT's were still elevated. Pt was seen by GI Dr. Bravo who did ERCP on 03/29/17 with CBD stent and pancreatic biopsy. Since then her LFT's started trending down. Today her Total Bilirubin at 2.1 and her pain improved. She started tolerating PO intake well. She was seen by Heme Onc also, who recommend to f/u with them as an out pt after biopsy results to discuss about further plan of care. today is POD # 2 her Pancreatic Biopsy results are still pending. However she is medically stable, so will d/c her home today and recommend to f/u with GI Dr. Bravo and Heme Onc Dr. Gant in 3-5 days to discuss about biopsy results and further treatment options. She also happened to have UTI with Klebsiella, which we treated here with Rocephin and d/c her home today with PO Augmentin for 3 more days. - Time Spent with Patient Total time spent providing and/or coordinating discharge services: Greater than 30 minutes (Spent 45 minutes on this patient's discharge summary due to complex medical problems and patient needed a lot of education regarding discharge instructions) - Constitutional Vitals: Temp Pulse Resp BP Pulse Ox 98.6 F 62 14 106/62 94 03/31/17 10:12 03/31/17 10:12 03/31/17 10:12 03/31/17 10:12 03/31/17 10:12 General appearance: Present: cooperative, A&O X 3, pleasant, no acute distress, answers questions appropriately - Head Head exam: Present: atraumatic, normal inspection - Respiratory Respiratory exam: Present: CTAB. Absent: accessory muscle use, rales, rhonchi, wheezes - Cardiovascular Cardiovascular exam: Present: RRR, +S1, +S2. Absent: diastolic murmur, gallop, rubs, systolic murmur - GI/Abdominal GI/Abdominal exam: Present: normal bowel sounds, soft, no peritoneal signs. Absent: distended, tenderness - Extremities Exam Extremities exam: Absent: calf tenderness, pedal edema, tenderness - Neurological Exam Neurological exam: Present: alert, oriented X3 - Psychiatric Psychiatric exam: Present: normal affect, normal mood - VTE Documentation of Mechanical Device: Intermittent pneumatic compression device
== END 2017-03-31 15:33 | disposition home or self-care (01) | DRG 435 ==
LOC: 3ANU 21:13 → EMEROO 21:13 → SUATTDRO 03-27 01:28 → 3ANU 03-27 01:48
PROVIDERS: ADMIT Internal Medicine; ATTEND Family Medicine
PROC: ENDOEUS (2017-03-29 13:00)

== ENCOUNTER 2017-06-23 23:10 | Inpatient (IN) ==
[2017-06-23] MEDS ORDERED: *HR* HYDROmorphone 2 MG TABLET PO ONE (23:55)
[2017-06-24] MEDS ORDERED: Ondansetron 4 MG/2 ML VIAL IVP ONE (01:23)
[2017-06-24] MEDS ORDERED: *HR* HYDROmorphone (PF) 1 MG/ML SYRINGE IVP ONE ×2 (01:36→17:16)
--- NOTE | 2017-06-24 01:54 | Emergency Department Note ---
START Narrative - START START: I examined this patient and my medical decision-making was reviewed with the Resident Physician. I agree with the documented findings, disposition and treatment plan as described except to the extent set forth below. 81-year-old female with a diagnosis of pancreatic cancer presents to the ER for pain control and weakness. She was diagnosed in March. She has been taking oral chemotherapy medication. She is on Dilaudid but states that is not controlling her pain now. She was doing fine up until today. Family states that she can barely even get around due to the weakness. It seems as though the patient is very somnolent at this time likely secondary to it being 2 AM as well as the excess pain medication. We will admit the patient to the hospitalist.
[2017-06-24 02:30] LABS: Bilirubin,Urine Small (Negative); Blood,Urine Negative (Negative); Clarity,Urine Clear (Clear); Color,Urine Red (Yellow); Glucose,Urine (UA) Normal (Normal); Ketones,Urine Trace mg/dL (Negative); Leukocyte Esterase,Urine Small (Negative); Nitrite,Urine Positive (Negative); PH,Urine 5.5 pH Units (5.0-8.0); Protein,Urine Negative (Neg-Trace); Specific Gravity,Urine 1.027 (1.010-1.025); Urobilinogen,Urine Normal (Normal)
[2017-06-24 02:32] LABS: Bacteria,Urine None Seen per hpf (None-Few); Hyaline Casts,Urine Few per lpf (None-Few); RBC,Urine 0-3 per hpf (0-3); Squamous Epithelial Cell,Urine Many per lpf (None-Few); WBC,Urine 0-3 per hpf (0-3)
[2017-06-24 02:55] LABS: Basophils # 0.1 K/mcL (0.0-0.2); Basophils % 0.6 %; Eosinophils # 0.2 K/mcL (0.0-0.6); Eosinophils % 1.2 %; Immature Granulocytes % 0.5 % (0-4); Immature Platelets 5.7 % (1.1-6.1); Lymphocytes # 1.1 K/mcL (0.6-4.6); Mean Corpuscular HGB Conc 31.3 g/dL (31.6-35.5); Mean Corpuscular Hemoglobin 28.7 pg (28.0-33.3); Mean Platelet Volume 10.5 fL (9.4-12.4); Monocytes # 1.2 K/mcL (0.0-1.3); Monocytes % 7.3 %; Neutrophils # 13.7 K/mcL (1.6-8.9); Platelet Count 350 K/mcL (140-400); Red Blood Count 3.48 M/mcL (3.82-4.97); Red Cell Distribution Width 16.6 % (11.5-14.5); Segmented Neutrophils % 83.4 %
--- NOTE | 2017-06-24 02:58 | Emergency Department Note ---
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 Patient was initially offered long-term versus home management. The patient has been at home but has been requiring more pain medicine than what has been prescribed. Patient is been taking 4 mg of Dilaudid at home. The patient's family is at bedside and states that it is difficult to care for home as she is unable to tolerate getting moved around. The patient will undergo further pain control in the emergency department and attempts to try and get her back to her home residence which is where she would like to be. Pain Scale: 8 - Related Data Home Medications Medication Instructions Recorded Confirmed Benazepril HCl [Lotensin] 20 mg PO DAILY 03/27/17 06/23/17 Labetalol HCl 200 mg PO BID 03/27/17 06/23/17 Levothyroxine [Synthroid] 75 mcg PO 0630 03/27/17 06/23/17 Multivit-Min/FA/Lycopen/Lutein [A 1 each PO DAILY 03/27/17 06/23/17 Thru Z Select Multivit Tab] Ubiquinol 100 mg PO DAILY 03/27/17 06/23/17 amLODIPine [Norvasc] 5 mg PO BID 03/27/17 06/23/17 cloNIDine HCl [Clonidine HCl] 0.3 mg PO HS 03/27/17 06/23/17 Ascorbic Acid [Vitamin C] 1,000 mg PO DAILY 04/03/17 06/23/17 Carboxymethylcellulose Sodium 1 each OP DAILY 04/03/17 06/23/17 [Refresh Plus] Ferrous Sulfate [Iron] 325 mg PO DAILY 04/03/17 06/23/17 Onekama [Onekama Berries] 565 mg PO DAILY 04/03/17 06/23/17 Magnesium 200 mg PO DAILY 04/03/17 06/23/17 Sennosides/Docusate Sodium [Stool 1 each PO DAILY 04/03/17 06/23/17 Softener Tablet] Ubidecarenone [Coq10] 50 mg PO DAILY 04/03/17 06/23/17 Previous Rx's Medication Instructions Recorded Omeprazole [PriLOSEC] 20 mg PO DAILY #30 03/31/17 Oxycodone HCl [Oxaydo] 5 mg PO Q8HR PRN #15 tab 03/31/17 Promethazine [Phenergan] 25 mg PO Q8HR PRN #60 tablet 04/03/17 ALPRAZolam [Xanax 0.25 MG Tablet] 0.25 mg PO BID PRN #60 tablet 06/23/17 HYDROmorphone [Dilaudid] 4 mg PO Q6HR #120 tablet 06/23/17 Ondansetron [Zofran] 8 mg PO Q8HR #60 tablet 06/23/17 Prochlorperazine Maleate 10 mg PO Q8HR PRN #90 tablet 06/23/17 [Compazine] Allergies Allergy/AdvReac Type Severity Reaction Status Date / Time codeine Allergy Unknown See Verified 06/23/17 23:16 Comments Review of Systems: CONSTITUTIONAL: No weight loss, fever, chills, weakness or fatigue. HEENT: Eyes: No visual changes. Ears, Nose, Throat: No hearing loss, difficulty talking or unable to swallow. SKIN: No rash or itching. CARDIOVASCULAR: No chest pain, chest pressure or chest discomfort. No palpitations or edema. RESPIRATORY: No shortness of breath, cough or sputum. GASTROINTESTINAL: Abdominal pain and nausea that is similar to what she has had in the past but not controlled with home medications. GENITOURINARY: No burning on urination or hematuria. NEUROLOGICAL: No headache, dizziness, syncope, paralysis, ataxia, numbness or tingling in the extremities. No change in bowel or bladder control. MUSCULOSKELETAL: No muscle pain, back pain, joint pain or stiffness. Past Medical History - Past Medical History Medical history: Reports: cancer, GERD, hypertension, other Psychiatric history: Reports: anxiety [employer] history: Reports: non-contributory - Social History Smoking Status: Never smoker Smokeless Tobacco Status: No Alcohol use: Reports: none Drug use: Reports: none Physical Exam General: Well appearing, nontoxic, no acute distress Head: Normocephalic Atraumatic Eyes: PERRL, EOMI ENT: Airway patent, no stridor Neck: supple, no meningismus Chest: Lungs clear to auscultation bilateral Cardiac: Regular rate and rhythm, no murmurs, rubs or gallops Abdomen: soft, right upper quadrant and epigastric tenderness. No rebound or guarding. Musculoskeletal: Calves symmetric, nontender, no palpable cord Skin: No rash, normal skin tone Neuro: Alert and Oriented to person, place, and time; No focal deficit, CN 2-12 symmetric and intact - General Limitations: no limitations General appearance: alert, in no apparent distress Course - Reevaluation(s) Reevaluation #1: Patient's pain uncontrolled with repeat dose of Dilaudid. Patient will be brought in for further pain management. Vital Signs Temperature 98.2 F 06/23/17 23:16 Pulse Rate 93 06/23/17 23:16 Respiratory Rate 20 06/23/17 23:16 Blood Pressure 94/76 06/23/17 23:16 O2 Sat by Pulse Oximetry 95 06/23/17 23:16 Temperature 97.8 F 06/24/17 07:07 Pulse Rate 93 06/24/17 07:07 Respiratory Rate 13 06/24/17 07:07 Blood Pressure 104/74 06/24/17 07:07 O2 Sat by Pulse Oximetry 98 06/24/17 07:07 Oxygen Delivery Oxygen Delivery Nasal Cannula Medical Decision Making - [facility] Narrative Medical decision making narrative: Patient with recent diagnosis workup of pancreatic cancer with metastatic lesions to the liver. The patient was initially brought in for an increased dose of pain medication and possible discharge home. Patient did not respond to oral medication. Patient's pain significant better after IV medication. Family does not feel comfortable taking the patient home as she has difficulty getting around. She is difficult to move and may likely need long-term placement. No change the quality of patient's pain from previous. Pain has not migrated. Patient does not have rebound tenderness. Patient denies fever or chills. No CT scan ordered at this time. Patient will need to have continued monitoring. - Lab Data Result diagrams: 06/24/17 03:37 06/24/17 03:37 Lab Results 06/24/17 06/24/17 06/24/17 Range/Units 02:23 02:49 02:49 WBC 16.4 H (4.3-11.1) K/mcL RBC 3.48 L (3.82-4.97) M/mcL Hgb 10.0 L (11.5-15.4) g/dL Hct 32.0 L (35.3-44.9) % MCV 92.0 (83.0-100.0) fL MCH 28.7 (28.0-33.3) pg MCHC 31.3 L (31.6-35.5) g/dL RDW 16.6 H (11.5-14.5) % Plt Count 350 (140-400) K/mcL MPV 10.5 (9.4-12.4) fL Immature Gran % 0.5 (0-4) % Seg Neutrophils % 83.4 % Lymphocytes % 7.0 % Monocytes % 7.3 % Eosinophils % 1.2 % Basophils % 0.6 % Neutrophils # 13.7 H (1.6-8.9) K/mcL Lymphocytes # 1.1 (0.6-4.6) K/mcL Monocytes # 1.2 (0.0-1.3) K/mcL Eosinophils # 0.2 (0.0-0.6) K/mcL Basophils # 0.1 (0.0-0.2) K/mcL Immature Plt Fraction 5.7 (1.1-6.1) % Sodium 130 L (136-145) mEq/L Potassium 5.0 H (3.5-4.5) mEq/L Chloride 96 L (98-109) mEq/L Carbon Dioxide 25 (19-29) mEq/L BUN 29 H (7-20) mg/dL Creatinine 1.42 H D (0.57-1.11) mg/dL Est GFR ( Amer) 43 L (> 60) Est GFR (Non-Af Amer) 36 L (> 60) BUN/Creatinine Ratio 20 (6-26) Glucose 175 H (70-99) mg/dL Calculated Osmolality 280 (280-300) Lactic Acid (0.5-2.2) mmol/L Calcium 9.6 (8.6-10.8) mg/dL Magnesium (1.6-2.6) mg/dL Total Bilirubin 0.8 (0.2-1.2) mg/dL Direct Bilirubin (0.0-0.5) mg/dL Indirect Bilirubin (0.0-1.2) mg/dL AST 66 H (5-34) Units/L ALT 21 (0-55) Units/L Alkaline Phosphatase 203 H (38-126) Units/L Serum Total Protein 6.3 (6.0-8.3) g/dL Albumin 2.0 L (3.5-5.0) g/dL Globulin 4.3 H (2.4-3.5) g/dL Albumin/Globulin Ratio 0.5 L (1.1-2.2) Lipase 62 (8-78) Units/L Urine Color Red A (Yellow) Urine Clarity Clear (Clear) Urine pH 5.5 (5.0-8.0) pH Units Ur Specific [place] 1.027 H (1.010-1.025) Urine Protein Negative (Neg-Trace) mg/dL Urine Glucose (UA) Normal (Normal) mg/dL Urine Ketones Trace H (Negative) mg/dL Urine Blood Negative (Negative) Urine Nitrite Positive A (Negative) Urine Bilirubin Small H (Negative) Urine Urobilinogen Normal (Normal) mg/dL Ur Leukocyte Esterase Small H (Negative) Urine Microscopic RBC 0-3 (0-3) per hpf Urine Microscopic WBC 0-3 (0-3) per hpf Ur Squamous Epith Cells Many H (None-Few) per lpf Urine Bacteria None Seen (None-Few) per hpf Hyaline Casts Few (None-Few) per lpf Ur Culture Indicated? YES A (NO) 06/24/17 06/24/17 06/24/17 Range/Units 03:37 03:37 03:37 WBC 16.1 H (4.3-11.1) K/mcL RBC 3.42 L (3.82-4.97) M/mcL Hgb 9.8 L (11.5-15.4) g/dL Hct 31.5 L (35.3-44.9) % MCV 92.1 (83.0-100.0) fL MCH 28.7 (28.0-33.3) pg MCHC 31.1 L (31.6-35.5) g/dL RDW 16.5 H (11.5-14.5) % Plt Count 335 (140-400) K/mcL MPV 10.9 (9.4-12.4) fL Immature Gran % 0.7 (0-4) % Seg Neutrophils % 83.8 % Lymphocytes % 7.2 % Monocytes % 7.1 % Eosinophils % 0.6 % Basophils % 0.6 % Neutrophils # 13.5 H (1.6-8.9) K/mcL Lymphocytes # 1.2 (0.6-4.6) K/mcL Monocytes # 1.1 (0.0-1.3) K/mcL Eosinophils # 0.1 (0.0-0.6) K/mcL Basophils # 0.1 (0.0-0.2) K/mcL Immature Plt Fraction (1.1-6.1) % Sodium 132 L (136-145) mEq/L Potassium 5.1 H (3.5-4.5) mEq/L Chloride 96 L (98-109) mEq/L Carbon Dioxide 27 (19-29) mEq/L BUN 30 H (7-20) mg/dL Creatinine 1.43 H (0.57-1.11) mg/dL Est GFR ( Amer) 43 L (> 60) Est GFR (Non-Af Amer) 35 L (> 60) BUN/Creatinine Ratio 21 (6-26) Glucose 156 H (70-99) mg/dL Calculated Osmolality 283 (280-300) Lactic Acid 2.4 H (0.5-2.2) mmol/L Calcium 9.8 (8.6-10.8) mg/dL Magnesium 1.8 (1.6-2.6) mg/dL Total Bilirubin 0.9 (0.2-1.2) mg/dL Direct Bilirubin 0.6 H (0.0-0.5) mg/dL Indirect Bilirubin 0.3 (0.0-1.2) mg/dL AST 69 H (5-34) Units/L ALT 21 (0-55) Units/L Alkaline Phosphatase 203 H (38-126) Units/L Serum Total Protein 6.4 (6.0-8.3) g/dL Albumin 2.1 L (3.5-5.0) g/dL Globulin 4.3 H (2.4-3.5) g/dL Albumin/Globulin Ratio 0.5 L (1.1-2.2) Lipase (8-78) Units/L Urine Color (Yellow) Urine Clarity (Clear) Urine pH (5.0-8.0) pH Units Ur Specific [place] (1.010-1.025) Urine Protein (Neg-Trace) mg/dL Urine Glucose (UA) (Normal) mg/dL Urine Ketones (Negative) mg/dL Urine Blood (Negative) Urine Nitrite (Negative) Urine Bilirubin (Negative) Urine Urobilinogen (Normal) mg/dL Ur Leukocyte Esterase (Negative) Urine Microscopic RBC (0-3) per hpf Urine Microscopic WBC (0-3) per hpf Ur Squamous Epith Cells (None-Few) per lpf Urine Bacteria (None-Few) per hpf Hyaline Casts (None-Few) per lpf Ur Culture Indicated? (NO)
[2017-06-24 03:07] LABS: Albumin/Globulin Ratio 0.5 (1.1-2.2); Bilirubin,Total 0.8 mg/dL (0.2-1.2); Calcium 9.6 mg/dL (8.6-10.8); Globulin 4.3 g/dL (2.4-3.5); Total Protein 6.3 g/dL (6.0-8.3)
[2017-06-24] MEDS ORDERED: ALPRAZolam 0.25 MG TABLET PO PRN (03:17)
[2017-06-24] MEDS ORDERED: Ondansetron 4 MG/2 ML VIAL IVP PRN (03:18)
[2017-06-24] MEDS ORDERED: Naloxone 0.4 MG/ML INJ IVP PRN (03:18)
[2017-06-24] MEDS ORDERED: 0.9 % Sodium Chloride 1,000 ML IVC ONE (03:24)
--- NOTE | 2017-06-24 03:30 | Internal Med History&Physical ---
Date of Encounter: 06/24/17 Time of Encounter: 03:29 Assessment and Plan (1) Pancreatic cancer Current visit: No Status: Acute suspicious for metastatic dz to liver consult onc Qualifiers: Qualified Code(s): C25.9 - Malignant neoplasm of pancreas, unspecified (2) Acute pain Current visit: Yes Status: Acute refractory pain failing home therapy cancer -related start MS henry long acting breakthrough IV dilaudid, PO dilaudid in attempt to control consider methadone if pain difficult to control with above (3) Acute kidney injury Current visit: Yes Status: Acute IVF, trend cr (4) SIRS (systemic inflammatory response syndrome) Current visit: Yes Status: Acute recently treated for cholangitis s/p stent and antibiotics at [facility] (may 2017) Now with elevated WBC IVF send blood cx check CT A/P w contrast Low threshold to start antibiotics should she decline clinically while awaiting above studies (5) Essential hypertension Current visit: No Status: Acute normotensive. Hold all anti-HTN Internal Medicine - H&P: HPI Chief complaint: RUQ pain History of present illness: Ms. Hopson is a 81 year old female with metastatic pancreatic cancer who presents with acute on subacute RUQ pain. She is established with oncology and had just been prescribed PO dilaudid for RUQ control. However, her pain was not well controlled and had become worse - she woke up in pain this a.m leading to admission. Of note, she was recently at [facility] in mid May 2017 for cholangitis s/p stent placement. She completed antibiotics approx 1 week ago. Past Med Surg Social Fam HX - Past Medical History Medical history: cancer, GERD, hypertension, other Psychiatric history: anxiety - Social History Smoking Status: Never smoker Smokeless Tobacco Status: No Alcohol use: none Drug use: none Internal Medicine - H&P: Meds Benazepril HCl [Lotensin] 20 mg PO DAILY 03/27/17 [History] Labetalol HCl 200 mg PO BID 03/27/17 [History] Levothyroxine [Synthroid] 75 mcg PO 0630 03/27/17 [History] Multivit-Min/FA/Lycopen/Lutein [A Thru Z Select Multivit Tab] 1 each PO DAILY [History] Ubiquinol 100 mg PO DAILY 03/27/17 [History] amLODIPine [Norvasc] 5 mg PO BID 03/27/17 [History] cloNIDine HCl [Clonidine HCl] 0.3 mg PO HS 03/27/17 [History] Omeprazole [PriLOSEC] 20 mg PO DAILY #30 03/31/17 [Rx] Oxycodone HCl [Oxaydo] 5 mg PO Q8HR PRN #15 tab 03/31/17 [Rx] Ascorbic Acid [Vitamin C] 1,000 mg PO DAILY 04/03/17 [History] Carboxymethylcellulose Sodium [Refresh Plus] 1 each OP DAILY 04/03/17 [History] Ferrous Sulfate [Iron] 325 mg PO DAILY 04/03/17 [History] [place] [Vineyard Haven Berries] 565 mg PO DAILY 04/03/17 [History] Magnesium 200 mg PO DAILY 04/03/17 [History] Promethazine [Phenergan] 25 mg PO Q8HR PRN #60 tablet 04/03/17 [Rx] Sennosides/Docusate Sodium [Stool Softener Tablet] 1 each PO DAILY 04/03/17 [ History] Ubidecarenone [Coq10] 50 mg PO DAILY 04/03/17 [History] ALPRAZolam [Xanax 0.25 MG Tablet] 0.25 mg PO BID PRN #60 tablet 06/23/17 [Rx] HYDROmorphone [Dilaudid] 4 mg PO Q6HR #120 tablet 06/23/17 [Rx] Ondansetron [Zofran] 8 mg PO Q8HR #60 tablet 06/23/17 [Rx] Prochlorperazine Maleate [Compazine] 10 mg PO Q8HR PRN #90 tablet 06/23/17 [Rx] 3 Allergy/AdvReac Type Severity Reaction Status Date / Time codeine Allergy Unknown See Verified 06/23/17 23:16 Comments All Systems PM: A 10-system review of systems was performed and is negative for pertinent findings except as documented above in the HPI. Review of systems: ROS 14 point review of systems reviewed as best as possible given presentation. Pertinent positive or negative as per HPI or otherwise reviewed as negative - Constitutional Vitals: Temp Pulse Resp BP Pulse Ox 98.2 F 78 18 108/92 97 06/23/17 23:16 06/24/17 02:54 06/24/17 02:54 06/24/17 02:54 06/24/17 02:54 Exam: General - AAO x 3 Psych - Appropriate affect/speech. No agitation Eyes - CYNDY. Eye lids intact. No scleral icterus Heart - Sinus. RRR. S1 and S2 present. No added HS/murmurs appreciated. No elevated JVD appreciated. Lung - Adequate air entry b/l, No crackles/wheezes appreciated GI - RUQ pain. No guarding or rigidity. No hepatosplenomegaly/ascites. BS+ - No CVA/suprapubic tenderness or palpable bladder distension Skin - Intact. No rash/petechiae/ecchymosis. Warm extremities Internal Med - H&P Results - Labs CBC & Chem 7: 06/24/17 03:37 06/24/17 03:37 Labs: Short CBC 06/24/17 Range/Units 02:49 WBC 16.4 H (4.3-11.1) K/mcL Hgb 10.0 L (11.5-15.4) g/dL Hct 32.0 L (35.3-44.9) % Plt Count 350 (140-400) K/mcL Neutrophils # 13.7 H (1.6-8.9) K/mcL BMP 06/24/17 02:49 Sodium 130 L Potassium 5.0 H Chloride 96 L Carbon Dioxide 25 BUN 29 H Creatinine 1.42 H D Glucose 175 H Calcium 9.6 Liver Function 06/24/17 Range/Units 02:49 Total Bilirubin 0.8 (0.2-1.2) mg/dL AST 66 H (5-34) Units/L ALT 21 (0-55) Units/L Alkaline Phosphatase 203 H (38-126) Units/L Albumin 2.0 L (3.5-5.0) g/dL Urine 06/24/17 Range/Units 02:23 Urine Color Red A (Yellow) Urine Clarity Clear (Clear) Urine pH 5.5 (5.0-8.0) pH Units Ur Specific Superior 1.027 H (1.010-1.025) Urine Protein Negative (Neg-Trace) mg/dL Urine Glucose (UA) Normal (Normal) mg/dL - Impressions ITS Impressions Chest X-Ray 06/24/17 01:45 IMPRESSION: The left basilar lucency could represent a large bulla, a hiatal hernia, or an elevated hemidiaphragm though the latter is felt to be less likely. D/ / Carlos Leahy MD / Carlos Leahy MD Interpreting Provider: Carlos Leahy MD
[2017-06-24 03:45] LABS: Basophils # 0.1 K/mcL (0.0-0.2); Basophils % 0.6 %; Eosinophils # 0.1 K/mcL (0.0-0.6); Eosinophils % 0.6 %; Hematocrit 31.5 % (35.3-44.9); Hemoglobin 9.8 g/dL (11.5-15.4); Immature Granulocytes % 0.7 % (0-4); Lymphocytes # 1.2 K/mcL (0.6-4.6); Lymphocytes % 7.2 %; Mean Corpuscular HGB Conc 31.1 g/dL (31.6-35.5); Mean Corpuscular Hemoglobin 28.7 pg (28.0-33.3); Mean Corpuscular Volume 92.1 fL (83.0-100.0); Mean Platelet Volume 10.9 fL (9.4-12.4); Monocytes # 1.1 K/mcL (0.0-1.3); Monocytes % 7.1 %; Neutrophils # 13.5 K/mcL (1.6-8.9); Platelet Count 335 K/mcL (140-400); Red Blood Count 3.42 M/mcL (3.82-4.97); Red Cell Distribution Width 16.5 % (11.5-14.5); Segmented Neutrophils % 83.8 %
[2017-06-24 03:56] LABS: Albumin 2.1 g/dL (3.5-5.0); Albumin/Globulin Ratio 0.5 (1.1-2.2); Bilirubin,Direct 0.6 mg/dL (0.0-0.5); Bilirubin,Indirect 0.3 mg/dL (0.0-1.2); Bilirubin,Total 0.9 mg/dL (0.2-1.2); Calcium 9.8 mg/dL (8.6-10.8); Globulin 4.3 g/dL (2.4-3.5); Magnesium 1.8 mg/dL (1.6-2.6); Potassium 5.1 mEq/L (3.5-4.5); Total Protein 6.4 g/dL (6.0-8.3)
[2017-06-24] MEDS: 0.9 % Sodium Chloride 1,000 ML IVC SCH ×2 (04:52→15:56)
[2017-06-24] MEDS: *HR* HYDROmorphone (PF) 1 MG/ML SYRINGE IVP PRN ×3 (04:52→15:39)
[2017-06-24] MEDS: *HR* OxyCODONE ER (12 HR) 20 MG TABLET PO SCH ×2 (05:46→13:36)
[2017-06-24] MEDS: *HR* Enoxaparin 30 MG/0.3 ML SYRINGE SQ SCH (05:47)
[2017-06-24] MEDS: *HR* HYDROmorphone 4 MG TABLET PO PRN ×2 (07:56→15:54)
[2017-06-24] MEDS ORDERED: *HR* Morphine Sulfate SR (12 HR) 30 MG TABLET.ER PO SCH (08:00)
--- NOTE | 2017-06-24 14:25 | Internal Med Progress Note ---
Date of Encounter: 06/24/17 Time of Encounter: 11:00 - Assessment and plan (1) SIRS (systemic inflammatory response syndrome) Current Visit: Yes Status: Acute Assessment and plan: Cocern for cholangitis especially with recent history she does meet SIRS criteria with elevated WBC, and sinus tachycardia will treat her with empirical abx Levaquin + Flagyl Will get plain CT of Abd and Pelvis Talked to the pt's family at bed side and explained to them about current care (2) Acute kidney injury Current Visit: Yes Status: Acute Assessment and plan: cont IV hydration Cr still elevated at 1.4 (3) Cancer associated pain Current Visit: Yes Status: Acute Assessment and plan: her RUQ pain mostly cancer related Reviewed Heme Onc recent office visit notes paining on out pt palliative chemo waiting on Heme Onc odalis now will ask Heme Onc recommendations about further care of plan cont current pain regimen (4) Pancreatic cancer Current Visit: No Status: Acute Qualifiers: Qualified Code(s): C25.9 - Malignant neoplasm of pancreas, unspecified (5) Obstructive jaundice Current Visit: No Status: Acute Assessment and plan: As per Heme Onc recent office visit notes : ERCP from May of 2017 showed infiltrative mass involving major papilloma occluding the metal stent. Possible sludge debris that removed. Metal stent was placed. Concerned for cholangitis too cont empirical abx trend on LFT's changed to full liquid diet (6) Essential hypertension Current Visit: No Status: Acute (7) GERD (gastroesophageal reflux disease) Current Visit: No Status: Acute Assessment and plan: on PPI Qualifiers: Esophagitis presence: without esophagitis Qualified Code(s): K21.9 - Gastro -esophageal reflux disease without esophagitis (8) Protein-calorie malnutrition, moderate Current Visit: Yes Status: Acute Assessment and plan: Her albumin levels are low will check pre albumin level she does have 3rd spacing due to hypoalbunemia encourage more Protein shakes Nutrition consulted - Subjective Interval history: Ms. 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 Later pt was admitted at [facility] with abdominal pain, found to have new liver lesions and liver biopsy showed metastasis. Also pt happened to have cholangitis which was treated with Cipro and Flagyl. After that she followed with Heme Onc on 06/23/17. now she presented to our ER last night c/o worsening abdominal pain and nausea. She still in moderate RUQ abdominal pain. Denied any fever / chills - Constitutional Vitals: Temp Pulse Resp BP Pulse Ox 97.8 F 93 13 104/74 98 06/24/17 07:07 06/24/17 07:07 06/24/17 07:07 06/24/17 07:07 06/24/17 07:07 General appearance: Present: mild distress (pain), A&O X 3 - Head Head exam: Present: atraumatic, normal inspection - Neck Neck exam general surgery: Present: supple - Respiratory Respiratory exam: Present: decreased breath sounds. Absent: rales, respiratory distress, rhonchi, wheezes - Cardiovascular Cardiovascular exam: Present: RRR, +S1, +S2. Absent: tachycardia - GI/Abdominal GI/Abdominal exam: Present: distended, normal bowel sounds, soft, tenderness ( RUQ). Absent: pulsatile mass, rebound - Extremities Exam Extremities exam: Present: pedal edema (2++). Absent: calf tenderness, tenderness - Neurological Exam Neurological exam: Present: alert, oriented X3 - Psychiatric Psychiatric exam: Present: depressed Internal Medicine: Result - Labs CBC & Chem 7: 06/24/17 03:37 06/24/17 03:37 Consult Discharge Plan - Plan Referrals: Mushtaq Oden MD [Primary Care Provider] -
[2017-06-24] MEDS ORDERED: LEVOFLOXACIN 750 MG/150 ML IVPB SCH (15:00)
[2017-06-24] MEDS ORDERED: Levofloxacin 500 MG/100 ML 500 MG/100 ML BAG IVPB SCH (15:00)
[2017-06-24] MEDS: MetroNIDAZOLE 500 MG/100 ML 500 MG/100 ML BAG IVPB SCH (17:05)
[2017-06-24] MEDS: *HR* Promethazine 25 MG/ML VIAL IVP PRN (18:32)
[2017-06-25] MEDS: *HR* OxyCODONE ER (12 HR) 20 MG TABLET PO SCH ×4 (00:35→22:55)
[2017-06-25] MEDS: MetroNIDAZOLE 500 MG/100 ML 500 MG/100 ML BAG IVPB SCH ×3 (00:37→16:44)
[2017-06-25] MEDS: Ondansetron 4 MG/2 ML VIAL IVP SCH ×6 (01:28→18:03)
[2017-06-25 05:05] LABS: Basophils # 0.1 K/mcL (0.0-0.2); Basophils % 0.5 %; Eosinophils % 0.2 %; Hematocrit 30.7 % (35.3-44.9); Hemoglobin 9.1 g/dL (11.5-15.4); Immature Granulocytes % 0.8 % (0-4); Lymphocytes # 1.2 K/mcL (0.6-4.6); Lymphocytes % 7.2 %; Mean Corpuscular HGB Conc 29.6 g/dL (31.6-35.5); Mean Corpuscular Hemoglobin 28.2 pg (28.0-33.3); Monocytes # 1.3 K/mcL (0.0-1.3); Monocytes % 7.4 %; Neutrophils # 14.1 K/mcL (1.6-8.9); Platelet Count 319 K/mcL (140-400); Red Blood Count 3.23 M/mcL (3.82-4.97); Red Cell Distribution Width 16.4 % (11.5-14.5); Segmented Neutrophils % 83.9 %
[2017-06-25 05:16] LABS: Albumin/Globulin Ratio 0.5 (1.1-2.2); Bilirubin,Direct 0.6 mg/dL (0.0-0.5); Bilirubin,Indirect 0.2 mg/dL (0.0-1.2); Bilirubin,Total 0.8 mg/dL (0.2-1.2); Calcium 9.2 mg/dL (8.6-10.8); Globulin 4.3 g/dL (2.4-3.5); Total Protein 6.3 g/dL (6.0-8.3)
[2017-06-25 05:55] LABS: Potassium 6.5 mEq/L (3.5-4.5)
[2017-06-25] MEDS ORDERED: Insulin Human Regular 10 UNIT in 0.9 % Sodium Chloride 10 ML IV ONE (06:07)
[2017-06-25] MEDS ORDERED: *HR* Dextrose 50 % in Water (Syg) 50 ML SYRINGE IVP ONE (06:07)
[2017-06-25] MEDS ORDERED: Calcium Gluconate 2,000 MG in D5% in Water 100 ML IVPB ONE (06:07)
[2017-06-25] MEDS: *HR* Enoxaparin 30 MG/0.3 ML SYRINGE SQ SCH (06:08)
[2017-06-25] MEDS ORDERED: 0.9 % Sodium Chloride 1,000 ML ONE (06:13)
--- NOTE | 2017-06-25 06:13 | Event Note ---
Date of Encounter: 06/25/17 Time of Encounter: 06:11 Called by RN for lab value of potassium 6.5. I ordered STAT repeat Potassium level, Dextrose IV, Insulin IV, Calcium Gluconate IV, and oral Kayexalate. I also ordered EKG and MIV with normal saline given worsening renal function.
[2017-06-25] MEDS: *HR* HYDROmorphone 4 MG TABLET PO PRN (07:52)
--- NOTE | 2017-06-25 08:44 | Oncology Inp Progress Note ---
Date of Encounter: 06/25/17 Time of Encounter: 09:00 (1) Pancreatic cancer Current Visit: No Status: Acute Assessment and plan: stage Iv with bx proven metastatic disease in the liver (at [facility]), imaging from [facility] prior CT abd shown multiple liver lesions-consistent with metastatic disease. Ct abd 06/23/17 reviewed. Seen to discuss palliative chemotherapy last wk, hospitalized with uncontrolled pain. On IV dilaudid 1mg q3prn, oxycontin 20mg q 8h, Po dilaudid. Increase oxycontin as required/add fentanyl patch. Discussed BIOLOGIST AIDE-patient/family reluctant to pursue. PAin somewhat better today that 06/23/17. Ensure supplements-poor nutrition/appetite. Megace to be considered as outpatient. ARF, worsening labs-decreased output?. De Jesus catheter/. IVF/bolus Palliative/comfort care options discussed with her and family. Plan palliative chemo next wk, if optimal pain control can be achieved. She will need a port placement for IV access at later date. Discussed plan of care with housestaff. Qualifiers: Pancreatic malignancy location: head of pancreas Qualified Code(s): C25.0 - Malignant neoplasm of head of pancreas Oncology: Subj Interval history: Pain RUQ with deep breaths/movement. Poor appetite - Constitutional Vitals: Vital Signs Temp Pulse Resp BP Pulse Ox 06/25/17 06:40 98.2 F 96 18 110/66 100 06/25/17 04:53 97.3 F L 94 18 112/81 96 06/24/17 23:50 98.0 F 93 18 89/56 95 06/24/17 19:37 97.4 F L 81 18 93/66 91 Intake and Output 06/24/17 06/25/17 06/25/17 23:59 07:59 15:59 Intake Total 250 / 250 Output Total 0 / 0 0 / 0 Balance 250 / 250 0 / 0 Intake: IV Fluids 250 / 250 Levaquin Premix 750mg/150 mL 150 / 150 750 mg In 150 ml @ 100 mls/hr IVPB Q48H FAIZA Rx#:[id number] Flagyl Premix 500 MG/100 ML 500 100 / 100 mg In 100 ml @ 100 mls/hr IVPB Q8HR FAIZA Rx#:[id number] Output: Urine 0 / 0 0 / 0 Other: Weight 61.3 kg Patient Weight 06/25/17 23:59 Weight 61.3 kg General appearance: no acute distress - Head Head exam: Present: atraumatic, normal inspection - Eye Eye exam: Present: sclera anicteric - ENT ENT exam: Present: mucous membranes moist - Neck Neck exam: Present: full ROM, normal inspection - Respiratory Respiratory exam: Present: CTAB - GI/Abdominal GI/Abdominal exam: Present: normal bowel sounds, soft Additional comments: Tenderness on deep palpation-liver - Extremities Exam Extremities exam: Present: normal inspection - Neurological Exam Neurological exam: Present: alert, CN II-XII intact, oriented X3 Oncology: Obj Data - Labs CBC & Chem 7: 06/25/17 04:50 06/25/17 04:50 Labs: Laboratory Results - last 24 hr 06/25/17 06/25/17 06/25/17 04:50 04:50 04:50 WBC 16.9 H RBC 3.23 L Hgb 9.1 L Hct 30.7 L MCV 95.0 MCH 28.2 MCHC 29.6 L RDW 16.4 H Plt Count 319 MPV 11.0 Immature Gran % 0.8 Seg Neutrophils % 83.9 Lymphocytes % 7.2 Monocytes % 7.4 Eosinophils % 0.2 Basophils % 0.5 Neutrophils # 14.1 H Lymphocytes # 1.2 Monocytes # 1.3 Eosinophils # 0.0 Basophils # 0.1 Sodium 129 L Potassium 6.5 H* D Chloride 101 Carbon Dioxide 22 BUN 40 H D Creatinine 2.56 H D Est GFR ( Amer) 22 L Est GFR (Non-Af Amer) 18 L BUN/Creatinine Ratio 16 Glucose 111 H Calculated Osmolality 278 L Lactic Acid 1.6 Calcium 9.2 Magnesium 2.0 Total Bilirubin 0.8 Direct Bilirubin 0.6 H Indirect Bilirubin 0.2 AST 99 H ALT 22 Alkaline Phosphatase 180 H Serum Total Protein 6.3 Albumin 2.0 L Globulin 4.3 H Albumin/Globulin Ratio 0.5 L Specimen Rejected 06/25/17 07:41 WBC RBC Hgb Hct MCV MCH MCHC RDW Plt Count MPV Immature Gran % Seg Neutrophils % Lymphocytes % Monocytes % Eosinophils % Basophils % Neutrophils # Lymphocytes # Monocytes # Eosinophils # Basophils # Sodium Potassium Chloride Carbon Dioxide BUN Creatinine Est GFR ( Amer) Est GFR (Non-Af Amer) BUN/Creatinine Ratio Glucose Calculated Osmolality Lactic Acid Calcium Magnesium Total Bilirubin Direct Bilirubin Indirect Bilirubin AST ALT Alkaline Phosphatase Serum Total Protein Albumin Globulin Albumin/Globulin Ratio Specimen Rejected Contaminated - Impressions Impressions Abdomen/Pelvis CT 06/24/17 14:39 IMPRESSION: 1. Pancreatic head mass appears to notably increased in size. It is difficult to no evidence of strangulation. From 28 x 32 x 23 mm on 03/27/2017 237 x 38 x 51 mm today. 2. Biliary stent is been placed, relieving the notable biliary obstruction seen previously. There is some pneumobilia. 3. A large part of the stomach has herniated above the diaphragm, as seen on prior. Outlet obstruction should be considered. 4. Right-sided pleural effusion. 5. Increasing movement of the descending colon into the left inguinal canal compared to prior. 6. Moderate body wall anasarca. D/ / Tim Rosenberg / Tim Rosenberg Interpreting Provider: Tim Rosenberg Consult Discharge Plan - Plan Referrals: Mushtaq Oden MD [Primary Care Provider] -
[2017-06-25] MEDS: *HR* HYDROmorphone (PF) 1 MG/ML SYRINGE IVP PRN ×4 (09:27→18:15)
[2017-06-25] MEDS ORDERED: *HR* FentaNYL PATCH 25 MCG PATCH TD SCH (09:30)
[2017-06-25] MEDS ORDERED: *HR* LORazepam 0.5 MG TABLET PO PRN (09:30)
[2017-06-25 10:10] LABS: Magnesium 1.9 mg/dL (1.6-2.6)
[2017-06-25 10:16] LABS: Potassium 5.3 mEq/L (3.5-4.5)
--- NOTE | 2017-06-25 11:18 | Event Note ---
Date of Encounter: 06/25/17 Time of Encounter: 11:15 Nephrology, [facility] I received a consult to see this pt for Hyponatremia, Hyperkalemia plus SREE. While studying her chart and reviewing progress notes, I came across several notes from Dr. Bennett in the past from 2009 to 2010. Since she is already established with the other nephrology group, I will kindly defer to his group for Nephrology consultation. I sent a Vocera page to primary team. Thank you though for thinking of the [facility] group.
[2017-06-25] MEDS: Albumin 25% 25gram/100mL 25 GM/100 ML IV.SOLN IVPB SCH ×2 (12:03→18:08)
--- NOTE | 2017-06-25 15:00 | Internal Med Progress Note ---
Date of Encounter: 06/25/17 Time of Encounter: 07:30 - Assessment and plan (1) SIRS (systemic inflammatory response syndrome) Current Visit: Yes Status: Acute Assessment and plan: Concern for cholangitis especially with recent history she does meet SIRS criteria with elevated WBC, and sinus tachycardia Cont empirical abx Levaquin + Flagyl Reviewed CT of Abd and Pelvis - Increased pancreatic head mass, rt sided pleural effusion, moderate body wall anasarca noticed Talked to the pt's family at bed side and explained to them about current care (2) Acute kidney injury Current Visit: Yes Status: Acute Assessment and plan: Worsening Cr - today @ 2.56 Also became severe oliguric placed De Jesus Nephro consulted cont IV hydration Started on Albumin as volume director of occupational therapy (3) Cancer associated pain Current Visit: Yes Status: Acute Assessment and plan: her RUQ pain mostly cancer related Spoke to Heme Onc Dr. Dyer will start her on Fentanyl 25mcg patch + Cont Oxycodone ER 20mg Q8hr Cont IV Diladudi 1mg Q3hr PRN for BTP Pt and family wanted to hold on [employer] pump for now (4) Pancreatic cancer Current Visit: No Status: Acute Qualifiers: Pancreatic malignancy location: head of pancreas Qualified Code(s): C25.0 - Malignant neoplasm of head of pancreas (5) Obstructive jaundice Current Visit: No Status: Acute Assessment and plan: As per Heme Onc recent office visit notes : ERCP from May of 2017 showed infiltrative mass involving major papilloma occluding the metal stent. Possible sludge debris that removed. Metal stent was placed. Concerned for cholangitis too cont empirical abx trend on LFT's changed to full liquid diet (6) Hyperkalemia Current Visit: Yes Status: Acute Assessment and plan: This morning K + - 6.5..seems to be hemolyzed repeated K + came back as 5.3 Pt was already given Insulin + D50 + Kayexalate cont close monitoring (7) Essential hypertension Current Visit: No Status: Acute (8) Protein-calorie malnutrition, moderate Current Visit: Yes Status: Acute Assessment and plan: Her albumin levels are low will check pre albumin level she does have 3rd spacing due to hypoalbunemia encourage more protein supplements Nutrition consulted also started on Albumin supplements (9) GERD (gastroesophageal reflux disease) Current Visit: No Status: Acute Assessment and plan: on PPI Qualifiers: Esophagitis presence: without esophagitis Qualified Code(s): K21.9 - Gastro -esophageal reflux disease without esophagitis - Subjective Interval history: Ms. 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 Later pt was admitted at [facility] with abdominal pain, found to have new liver lesions and liver biopsy showed metastasis. Also pt happened to have cholangitis which was treated with Cipro and Flagyl. After that she followed with Heme Onc on 06/23/17. now she presented to our ER c/o worsening abdominal pain and nausea. She still in moderate RUQ abdominal pain. Denied any fever / chills. Her PO intake is very poor. Denied any CP / SOB. Pain little better today compare to y/d - Constitutional Vitals: Temp Pulse Resp BP Pulse Ox 97.9 F 100 18 112/68 96 06/25/17 11:19 06/25/17 11:19 06/25/17 11:19 06/25/17 11:19 06/25/17 11:19 General appearance: Present: mild distress (pain), A&O X 3 - Head Head exam: Present: atraumatic, normal inspection - Neck Neck exam general surgery: Present: supple - Respiratory Respiratory exam: Present: decreased breath sounds, wheezes (mild). Absent: rales, respiratory distress, rhonchi - Cardiovascular Cardiovascular exam: Present: +S1, +S2, tachycardia - GI/Abdominal GI/Abdominal exam: Present: distended, hypoactive bowel sounds, soft, tenderness (RUQ and periumbelical). Absent: rebound, rigid - Extremities Exam Extremities exam: Present: pedal edema. Absent: calf tenderness, tenderness - Neurological Exam Neurological exam: Present: alert, oriented X3 - Psychiatric Psychiatric exam: Present: depressed - Skin Skin exam: Present: dry, warm Internal Medicine: Result - Labs CBC & Chem 7: 06/25/17 04:50 06/25/17 09:27 Labs: Short CBC 06/25/17 Range/Units 04:50 WBC 16.9 H (4.3-11.1) K/mcL Hgb 9.1 L (11.5-15.4) g/dL Hct 30.7 L (35.3-44.9) % Plt Count 319 (140-400) K/mcL Neutrophils # 14.1 H (1.6-8.9) K/mcL BMP 06/25/17 06/25/17 04:50 09:27 Sodium 129 L 127 L Potassium 6.5 H* D 5.3 H D Chloride 101 100 Carbon Dioxide 22 24 BUN 40 H D 40 H Creatinine 2.56 H D 2.68 H Glucose 111 H 192 H Calcium 9.2 9.0 Liver Function 06/25/17 Range/Units 04:50 Total Bilirubin 0.8 (0.2-1.2) mg/dL Direct Bilirubin 0.6 H (0.0-0.5) mg/dL AST 99 H (5-34) Units/L ALT 22 (0-55) Units/L Alkaline Phosphatase 180 H (38-126) Units/L Albumin 2.0 L (3.5-5.0) g/dL - Impressions Impressions Abdomen/Pelvis CT 06/24/17 14:39 IMPRESSION: 1. Pancreatic head mass appears to notably increased in size. It is difficult to no evidence of strangulation. From 28 x 32 x 23 mm on 03/27/2017 237 x 38 x 51 mm today. 2. Biliary stent is been placed, relieving the notable biliary obstruction seen previously. There is some pneumobilia. 3. A large part of the stomach has herniated above the diaphragm, as seen on prior. Outlet obstruction should be considered. 4. Right-sided pleural effusion. 5. Increasing movement of the descending colon into the left inguinal canal compared to prior. 6. Moderate body wall anasarca. D/ / Tim Rosenberg / Tim Rosenberg Interpreting Provider: Tim Rosenberg - VTE Documentation of Mechanical Device: Intermittent pneumatic compression device Consult Discharge Plan - Plan Referrals: Mushtaq Oden MD [Primary Care Provider] -
[2017-06-25] MEDS: 0.9 % Sodium Chloride 1,000 ML IVC SCH (16:46)
[2017-06-25] MEDS: *HR* Promethazine 25 MG/ML VIAL IVP PRN (22:55)
[2017-06-26] MEDS: Albumin 25% 25gram/100mL 25 GM/100 ML IV.SOLN IVPB SCH ×3 (01:02→18:07)
[2017-06-26] MEDS: MetroNIDAZOLE 500 MG/100 ML 500 MG/100 ML BAG IVPB SCH ×3 (01:09→16:45)
[2017-06-26] MEDS: *HR* HYDROmorphone (PF) 1 MG/ML SYRINGE IVP PRN ×3 (02:26→10:18)
[2017-06-26 03:25] LABS: Basophils % 0.3 %; Eosinophils # 0.2 K/mcL (0.0-0.6); Eosinophils % 1.3 %; Hematocrit 24.3 % (35.3-44.9); Immature Granulocytes % 0.5 % (0-4); Lymphocytes # 0.9 K/mcL (0.6-4.6); Lymphocytes % 6.7 %; Mean Corpuscular HGB Conc 30.9 g/dL (31.6-35.5); Mean Corpuscular Hemoglobin 28.6 pg (28.0-33.3); Mean Corpuscular Volume 92.7 fL (83.0-100.0); Mean Platelet Volume 10.3 fL (9.4-12.4); Monocytes # 1.1 K/mcL (0.0-1.3); Monocytes % 8.3 %; Neutrophils # 10.8 K/mcL (1.6-8.9); Platelet Count 201 K/mcL (140-400); Red Blood Count 2.62 M/mcL (3.82-4.97); Red Cell Distribution Width 16.3 % (11.5-14.5); Segmented Neutrophils % 82.9 %
[2017-06-26 03:26] LABS: Hemoglobin 7.5 g/dL (11.5-15.4)
[2017-06-26 03:39] LABS: Bilirubin,Total 0.8 mg/dL (0.2-1.2); Calcium 8.5 mg/dL (8.6-10.8); Globulin 3.1 g/dL (2.4-3.5); Potassium 5.5 mEq/L (3.5-4.5); Total Protein 6.1 g/dL (6.0-8.3)
[2017-06-26 03:42] LABS: Bilirubin,Direct 0.6 mg/dL (0.0-0.5); Bilirubin,Indirect 0.2 mg/dL (0.0-1.2); Bilirubin,Total 0.8 mg/dL (0.2-1.2); Calcium 8.5 mg/dL (8.6-10.8); Globulin 3.1 g/dL (2.4-3.5); Magnesium 1.9 mg/dL (1.6-2.6); Potassium 5.5 mEq/L (3.5-4.5); Total Protein 6.1 g/dL (6.0-8.3)
[2017-06-26] MEDS: 0.9 % Sodium Chloride 1,000 ML IVC SCH (04:34)
[2017-06-26] MEDS: Ondansetron 4 MG/2 ML VIAL IVP SCH ×3 (04:35→12:37)
[2017-06-26] MEDS: *HR* OxyCODONE ER (12 HR) 20 MG TABLET PO SCH (05:58)
[2017-06-26] MEDS: *HR* Enoxaparin 30 MG/0.3 ML SYRINGE SQ SCH (08:37)
--- NOTE | 2017-06-26 09:38 | Nephrology Consult Note ---
Date of Encounter: 06/26/17 Time of Encounter: 09:36 Assessment and Plan (1) Acute kidney injury Current Visit: Yes Status: Acute Patient has acute kidney injury in the setting of progressive pancreatic carcinoma with liver metastasis. Etiology could be related to decreased oral intake, possible renal obstruction, or some other etiology. Unfortunately there is not much to offer the patient. She has progressive cancer. She is not really a good candidate for dialysis. Her overall prognosis is poor. My suggestion would be to address her pain issues and possibly consult palliative care. (2) Cancer associated pain Current Visit: Yes Status: Acute (3) Pancreatic cancer Current Visit: No Status: Acute Qualifiers: Pancreatic malignancy location: head of pancreas Qualified Code(s): C25.0 - Malignant neoplasm of head of pancreas History of Present Illness - History of Present Illness This is a 81-year-old female with a history of worsening metastatic pancreatic carcinoma. Patient was admitted to the hospital with worsening abdominal pain as well as nausea. She has had decreased oral intake. Since being admitted to the hospital she has had progressive acute kidney injury as well as oliguria. Creatinine is now up to 3.03. A De Jesus catheter is in place. Urine output is only 175 mL for the past 24 hours. The patient's main complaint is that of abdominal pain as well as nausea. Her appetite is very poor. She does have metastatic disease to her liver. Past Med Surg Social Fam HX - Past Medical History Medical history: cancer, GERD, hypertension, other Psychiatric history: anxiety - Past Surgical History Surgical History: cholecystectomy - Social History Smoking Status: Never smoker Smokeless Tobacco Status: No Alcohol use: none Drug use: none - Family History Mother Living Status: Cause of : Lung Ca. Hx Family Cancer: Yes (Lung Ca.) Daughter Living Status: Still Living Hx Family Cancer: Yes (Bowel Ca.) Medications and Allergies Benazepril HCl [Lotensin] 20 mg PO DAILY 03/27/17 [History] Labetalol HCl 200 mg PO BID 03/27/17 [History] Levothyroxine [Synthroid] 75 mcg PO DAILY 03/27/17 [History] Multivit-Min/FA/Lycopen/Lutein [A Thru Z Select Multivit Tab] 1 each PO DAILY [History] amLODIPine [Norvasc] 5 mg PO DAILY 03/27/17 [History] cloNIDine HCl [Clonidine HCl] 0.3 mg PO BID 03/27/17 [History] Omeprazole [PriLOSEC] 20 mg PO DAILY #30 03/31/17 [Rx] Oxycodone HCl [Oxaydo] 5 mg PO Q8HR PRN #15 tab 03/31/17 [Rx] Ascorbic Acid [Vitamin C] 1,000 mg PO DAILY 04/03/17 [History] Carboxymethylcellulose Sodium [Refresh Plus] 1 drop OP DAILY PRN 04/03/17 [ History] [place] [[place] Berries] 565 mg PO DAILY 04/03/17 [History] Promethazine [Phenergan] 25 mg PO Q8HR PRN #60 tablet 04/03/17 [Rx] Ubidecarenone [Coq10] 50 mg PO DAILY 04/03/17 [History] ALPRAZolam [Xanax 0.25 MG Tablet] 0.25 mg PO BID PRN #60 tablet 06/23/17 [Rx] HYDROmorphone [Dilaudid] 4 mg PO Q6HR #120 tablet 06/23/17 [Rx] Ondansetron [Zofran] 8 mg PO Q8HR #60 tablet 06/23/17 [Rx] Prochlorperazine Maleate [Compazine] 10 mg PO Q8HR PRN #90 tablet 06/23/17 [Rx] 3 Allergy/AdvReac Type Severity Reaction Status Date / Time codeine Allergy Unknown See Verified 06/23/17 23:16 Comments Review of Systems Constitutional: as per HPI, fatigue, weakness Eyes: bilateral: blurred vision (patient denies), diplopia (patient denies) Nose, mouth and throat: no dizziness, no headache(s) Cardiovascular: as per HPI, dyspnea Respiratory: as per HPI, dyspnea Gastrointestinal: abdominal pain, nausea, no change in bowel habits Musculoskeletal: no muscle weakness, no numbness Integumentary: no hirsutism, no striae Neurological: as per HPI Psychiatric: no depression, no difficulty concentrating Endocrine: as per HPI Hematologic/Lymphatic: no easy bruising, no lymphadenopathy Exam - Vital Signs Vital signs: Initial Vital Signs Temp Pulse Resp BP Pulse Ox 98.2 F 93 20 94/76 95 06/23/17 23:16 06/23/17 23:16 06/23/17 23:16 06/23/17 23:16 06/23/17 23:16 Vital Signs - Last 8 Hours Temp Pulse Resp BP Pulse Ox 06/26/17 08:16 97 06/26/17 06:28 97.9 F 59 20 103/56 98 06/26/17 04:11 97.9 F 100 22 108/67 97 Intake and Output 06/25/17 06/26/17 06/26/17 23:59 07:59 15:59 Intake Total 200 / 200 1200 / 1200 Output Total 50 / 50 0 / 0 Balance 150 / 150 1200 / 1200 Intake: IV Fluids 200 / 200 1200 / 1200 0.9 % Sodium Chloride 1,000 ML 1000 / 1000 @ 100 mls/hr IVC .Q10H [facility]IZA Rx#: [id number] Flexbumin 25 gm In 100 ml @ 60 100 / 100 100 / 100 mls/hr IVPB Q8HR [facility]IZA Rx#: [id number] Flagyl Premix 500 MG/100 ML 500 100 / 100 100 / 100 mg In 100 ml @ 100 mls/hr IVPB Q8HR FAIZA Rx#:[id number] Output: Urine 50 / 50 0 / 0 Catheter 0 / 0 Other: # Bowel Movements 0 - General Appearance Exam: The patient is alert. She appears chronically ill. Blood pressure is 103/56. A De Jesus catheter is in place. Lungs symmetric breath sounds. Heart regular rate and rhythm. Abdomen is soft. There is some right upper quadrant tenderness. There is no lower extremity swelling. A De Jesus catheter is in place. Results - Lab Results 06/26/17 03:15 06/26/17 03:15 Most recent lab results Calcium 8.5 mg/dL (8.6-10.8) L 06/26/17 03:15 Magnesium 1.9 mg/dL (1.6-2.6) 06/26/17 03:15 Consult Discharge Plan - Plan Referrals: Mushtaq Oden MD [Primary Care Provider] -
[2017-06-26] MEDS ORDERED: *HR* FentaNYL PATCH 12 MCG PATCH TD SCH (10:00)
[2017-06-26] MEDS ORDERED: *HR* HYDROmorphone 20 MG/20 ML PCA IVC PRN ×2 (10:22→20:23)
--- NOTE | 2017-06-26 10:39 | Palliative - Consult Note ---
Date of Encounter: 06/26/17 Time of Encounter: 10:05 - Assessment and Plan (1) Cancer associated pain Current Visit: Yes Status: Acute Assessment and plan: Patient in bed. Family at bedside. of 61 years Elliot attentive. Patient face with grimace and reports RUQ pain 10/10 stabbing. Patient reports that it is unbearable with intense pressure of stabbing pain. Pain related to pancreatic cancer. CT reveals size of mass has increased with liver mets. OARRS reports reviewed, found to be acceptable. Patients home use of oxycodone PRN 5 mg every 8 hrs. Last BM 2 days ago on Jun 23. Patient oxycodone has been increased here with Fentanyl patch as well. Failed to provide relief. Discussed goals of pain management and the need for aggressive treatment as pancreatic cancer is found to be painful. Discussed starting METALS ANALYST pump. Patient is in discomfort as evidenced by 10/10 pain to RUQ and failed combo po, patch and IV therapy PRN. Patient and family now agree to have pump started. Order placed for Dilaudid METALS ANALYST pump. Will adjust as needed. (2) Nausea Current Visit: Yes Status: Acute Assessment and plan: Patient complains of nausea. No vomiting noted but patient has declined meals d/ t nausea. Patient reports that nausea is continuous with unrelieved pain. Patient reports last BM was moderate on 06/23. Patient with history of anxiety as well as uncontrolled pain at the time of consult. Oral cavity is without redness or leukoplakia. BUN and creatinine as well as low Na and high K+ disturbances. Plan - 0.9NS infusing - Schedule Zofran - Phenergan PRN - Mouth care - METALS ANALYST for pain to initiated. (3) Goals of care, counseling/discussion Current Visit: Yes Status: Acute Assessment and plan: Patient in severe pain at time of consult with limited ability to have detailed discussion related to goals of care and code status. Patient doesn't have advanced directives completed and she is not sure of code status goals. I did a minimal discussion of desires for intubation and CPR and introduced the need to further discuss and clarify once patient was more comfortable we could further discuss. Patient and family agree and for now patient remains full code. Oncology note reviewed and patient could have palliative chemo if stable. Nephrology notes indicate patient is not candidate for dialysis as she has metastatic pancreatic cancer. Patient currently on antibiotics and fluids. Priority to get pain under control with METALS ANALYST and transition to palliative care bed as patient has overall poor prognosis. The family as well as the patient will need support with further discussions for goals of care. (4) SIRS (systemic inflammatory response syndrome) Current Visit: Yes Status: Acute Assessment and plan: Antibiotics and fluids. WBC 13.0. (5) Acute kidney injury Current Visit: Yes Status: Acute Assessment and plan: Nephrology saw patient and patient not candidate for dialysis. (6) Protein-calorie malnutrition, moderate Current Visit: Yes Status: Acute Assessment and plan: Dietary on board and will need to get nausea treated (7) Pancreatic cancer Current Visit: Yes Status: Acute Assessment and plan: Oncology note reviewed. Patient seeking palliative chemo but is far to ill at present. Prognosis is poor. Qualifiers: Pancreatic malignancy location: head of pancreas Qualified Code(s): C25.0 - Malignant neoplasm of head of pancreas Palliative-CN HPI - Data of Consult Patient: new to practice Consult date: 06/26/17 Requesting Physician: Hien Hernandez MD Primary Care Provider: Mushtaq Oden MD - Consult Narrative Palliative Care/Comfort Measures: Palliative care Reason for consult: Symptom Management History of present illness: This is a 81-year-old female with a history of worsening metastatic pancreatic carcinoma. CT scan abdomen reveals an increase in mass size with mets to liver. Patient recently diagnosed this past March 2017. Patient recently saw [facility] and discussed palliative chemotherapy. She is now admitted to the hospital with worsening abdominal pain as well as nausea. She has had decreased oral intake. Since being admitted to the hospital she has had progressive acute kidney injury as well as oliguria. Creatinine is now up to 3.03. A De Jesus catheter is in place. Urine output is only 175 mL for the past 24 hours. The patient's main complaint is that of abdominal pain 10/10 to the RUQ as well as nausea. Her appetite is very poor. She does have metastatic disease to her liver. This palliative care consult is for pain and symptom management. CC: Hien Hernandez MD Past Med Surg Social Fam HX - Past Medical History Source: patient, old records reviewed, obtained from family, nursing notes reviewed Medical history: cancer, GERD, hypertension, other Psychiatric history: anxiety - Past Surgical History Surgical History: cholecystectomy - Social History Smoking Status: Never smoker Smokeless Tobacco Status: No Alcohol use: none Drug use: none Occupational status: retired Current living situation: Home, With Family Activity Level: Mostly sedentary Recent Out of Country Travel Within the Last 8 Weeks: No Exposure or Possible Exposure to Illness During Travel: No - Family History Mother Living Status: Cause of : Lung Ca. Hx Family Cancer: Yes (Lung Ca.) Daughter Living Status: Still Living Hx Family Cancer: Yes (Bowel Ca.) Medications and Allergies Benazepril HCl [Lotensin] 20 mg PO DAILY 03/27/17 [History] Labetalol HCl 200 mg PO BID 03/27/17 [History] Levothyroxine [Synthroid] 75 mcg PO DAILY 03/27/17 [History] Multivit-Min/FA/Lycopen/Lutein [A Thru Z Select Multivit Tab] 1 each PO DAILY [History] amLODIPine [Norvasc] 5 mg PO DAILY 03/27/17 [History] cloNIDine HCl [Clonidine HCl] 0.3 mg PO BID 03/27/17 [History] Omeprazole [PriLOSEC] 20 mg PO DAILY #30 03/31/17 [Rx] Oxycodone HCl [Oxaydo] 5 mg PO Q8HR PRN #15 tab 03/31/17 [Rx] Ascorbic Acid [Vitamin C] 1,000 mg PO DAILY 04/03/17 [History] Carboxymethylcellulose Sodium [Refresh Plus] 1 drop OP DAILY PRN 04/03/17 [ History] [place] [[place] Berries] 565 mg PO DAILY 04/03/17 [History] Promethazine [Phenergan] 25 mg PO Q8HR PRN #60 tablet 04/03/17 [Rx] Ubidecarenone [Coq10] 50 mg PO DAILY 04/03/17 [History] ALPRAZolam [Xanax 0.25 MG Tablet] 0.25 mg PO BID PRN #60 tablet 06/23/17 [Rx] HYDROmorphone [Dilaudid] 4 mg PO Q6HR #120 tablet 06/23/17 [Rx] Ondansetron [Zofran] 8 mg PO Q8HR #60 tablet 06/23/17 [Rx] Prochlorperazine Maleate [Compazine] 10 mg PO Q8HR PRN #90 tablet 06/23/17 [Rx] 3 Allergy/AdvReac Type Severity Reaction Status Date / Time codeine Allergy Unknown See Verified 06/23/17 23:16 Comments ROS unobtainable: other (Pain with intractable RUQ abdominla pain. history Pancreatic cancer with mets to liver. ) Review of systems: Focused pain assessment. 05/02 RUQ abdominal pain, tenderness, and ascites to abdomen. Describes pain as sharp and constant. Positioned for comfort. - Constitutional Constitutional ROS PAL: decreased appetite, fatigue, lethargy - EENT Eyes: requires corrective lenses - Cardiovascular Cardiovascular ROS: dyspnea on exertion, edema, pedal edema - Respiratory Respiratory: dyspnea - Gastrointestinal Gastrointestinal: nausea, vomiting - Genitourinary Palliative ROS female: change in urinary stream - Musculoskeletal Musculoskeletal ROS IM: muscle weakness, myalgias - Neurological Neurological ROS: weakness Palliative Care-Exam - Constitutional Vitals: Temp Pulse Resp BP Pulse Ox 97.9 F 59 20 103/56 97 06/26/17 06:28 06/26/17 06:28 06/26/17 06:28 06/26/17 06:28 06/26/17 08:16 General appearance: Present: mild distress Exam: C/O RUQ abdominal pain. Stabbing, non-radiating. 05/02. - Head Head Exam: Present: atraumatic - Eye Eye exam: Present: PERRL - Neck Neck exam: Present: full ROM - Respiratory Respiratory exam: Present: decreased breath sounds - Expanded Respiratory Exam Location: decreased breath sounds: Left, Right - Cardiovascular Cardiovascular exam: Present: RRR, +S1, +S2 - Expanded Cardiovascular Exam Peripheral pulses: 1+: Femoral (L) PM, Femoral (R) PM, Posterior Tibialis (L), Posterior Tibialis (R), 2+: Carotid (L) PM, Carotid (R) PM, Radial (L), Radial ( R), Dorsalis Pedis (L) PM, Dorsalis Pedis (R) PM - GI/Abdominal Exam GI/Abdominal exam: Present: distended, guarding, soft, tenderness additional comments: General anasarca - Expanded GI/Abdominal Exam GI/Abdominal exam: Present: ascites - Rectal Rectal exam: Present: deferred - Catheter Type: Urethral (De Jesus) (small amount of urine) - Extremities Exam Extremities exam: Present: pedal edema (bilateral pedal edema 3+ pitting) - Expanded Upper Extremities Exam Shoulder exam: Present: full ROM Upper Arm exam: Present: full ROM Forearm wrist exam: Present: full ROM - Neurological Exam Neurological exam: Present: alert, oriented X3 - Expanded Neurological Exam Coma Scale Eye Opening: Spontaneous Coma Scale Motor Response: Obeys Commands Coma Scale Verbal Response: Oriented Coma Scale Total: 15 - Psychiatric Psychiatric exam: Present: anxious - Skin Skin exam: Present: pallor Internal Medicine - CN: Reslt - Labs CBC & Chem 7: 06/26/17 03:15 06/26/17 03:15 Labs: Short CBC 06/26/17 Range/Units 03:15 WBC 13.0 H (4.3-11.1) K/mcL Hgb 7.5 L D (11.5-15.4) g/dL Hct 24.3 L (35.3-44.9) % Plt Count 201 (140-400) K/mcL Neutrophils # 10.8 H (1.6-8.9) K/mcL BMP 06/25/17 06/26/17 06/26/17 09:27 03:15 03:15 Sodium 127 L 130 L 130 L Potassium 5.3 H D 5.5 H 5.5 H Chloride 100 100 100 Carbon Dioxide 24 19 18 L BUN 40 H 44 H 43 H Creatinine 2.68 H 3.02 H 3.03 H Glucose 192 H 92 92 Calcium 9.0 8.5 L 8.5 L Liver Function 06/26/17 06/26/17 Range/Units 03:15 03:15 Total Bilirubin 0.8 0.8 (0.2-1.2) mg/dL Direct Bilirubin 0.6 H (0.0-0.5) mg/dL AST 84 H 84 H (5-34) Units/L ALT 18 19 (0-55) Units/L Alkaline Phosphatase 166 H 166 H (38-126) Units/L Albumin 3.0 L D 3.0 L (3.5-5.0) g/dL - Imaging and Cardiology CT scan - abdomen Status: image reviewed by me Consult Discharge Plan - Plan Referrals: Mushtaq Oden MD [Primary Care Provider] - Palliative Quality Palliative Quality: Screen for Code Status: Yes, Screen for Goals of Care: Yes, Screen for Pain: Yes, If Pain Regimen Started, Initiate Bowel Regimen: Yes, Screen for Nausea/Vomitting: Yes Code Status: Full Code
--- NOTE | 2017-06-26 12:12 | Internal Med Progress Note ---
Date of Encounter: 06/26/17 Time of Encounter: 09:30 - Assessment and plan (1) SIRS (systemic inflammatory response syndrome) Current Visit: Yes Status: Acute Assessment and plan: Concern for cholangitis especially with recent history she did meet SIRS criteria with elevated WBC, and sinus tachycardia WBC trending down Cont empirical abx Levaquin + Flagyl - Renally dosed Reviewed CT of Abd and Pelvis - Increased pancreatic head mass, rt sided pleural effusion, moderate body wall anasarca noticed Talked to the pt's family at bed side and explained to them about current care. They still do not want to change code status. However agree for pallaitive care consult for pain management. At this point pt and family goal also to keep her pain free and comfortable. I spoke to Palliative care team, we decided to go with Dilaudid LABORATORY SUPERVISOR pump for now.. Pt's family does aware of possible respiratory distress with this. (2) Acute kidney injury Current Visit: Yes Status: Acute Assessment and plan: Worsening Cr - today @ 3.03 Still severe oliguric- anuria Cont De Jesus Nephro consulted cont IV hydration Cont IV Albumin as volume unit control clerk (3) Cancer associated pain Current Visit: Yes Status: Acute Assessment and plan: her RUQ pain mostly cancer related Spoke to Ros Dyer Palliative care team on board now started her on Dilaudid LABORATORY SUPERVISOR pump (4) Pancreatic cancer Current Visit: Yes Status: Acute Qualifiers: Pancreatic malignancy location: head of pancreas Qualified Code(s): C25.0 - Malignant neoplasm of head of pancreas (5) Obstructive jaundice Current Visit: No Status: Acute Assessment and plan: As per [facility] recent office visit notes : ERCP from May of 2017 showed infiltrative mass involving major papilloma occluding the metal stent. Possible sludge debris that removed. Metal stent was placed. Concerned for cholangitis too cont empirical abx trend on LFT's changed to full liquid diet (6) Hyperkalemia Current Visit: Yes Status: Acute Assessment and plan: Her K + - 5.5 mostly due to SREE cont close monitoring (7) Essential hypertension Current Visit: No Status: Acute (8) Protein-calorie malnutrition, moderate Current Visit: Yes Status: Acute Assessment and plan: Her albumin levels are low she does have 3rd spacing due to hypoalbunemia encourage more protein supplements Nutrition consulted also started on Albumin supplements (9) GERD (gastroesophageal reflux disease) Current Visit: No Status: Acute Assessment and plan: on PPI Qualifiers: Esophagitis presence: without esophagitis Qualified Code(s): K21.9 - Gastro -esophageal reflux disease without esophagitis - Subjective Interval history: Ms. 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 Later pt was admitted at [facility] with abdominal pain, found to have new liver lesions and liver biopsy showed metastasis. Also pt happened to have cholangitis which was treated with Cipro and Flagyl. After that she followed with [facility] Onc on 06/23/17. now she presented to our ER c/o worsening abdominal pain and nausea. She still in moderate to severe RUQ abdominal pain. Denied any fever / chills. Her PO intake is very poor. Denied any CP / SOB. - Constitutional Vitals: Temp Pulse Resp BP Pulse Ox 98.2 F 109 20 108/61 97 06/26/17 11:33 06/26/17 11:33 06/26/17 11:33 06/26/17 11:33 06/26/17 11:33 General appearance: Present: mild distress (pain), A&O X 3 - Head Head exam: Present: atraumatic, normal inspection - Neck Neck exam general surgery: Present: supple - Respiratory Respiratory exam: Present: decreased breath sounds. Absent: rales, respiratory distress, rhonchi, wheezes - Cardiovascular Cardiovascular exam: Present: RRR, +S1, +S2. Absent: systolic murmur - GI/Abdominal GI/Abdominal exam: Present: normal bowel sounds, soft, tenderness (Severe tenderness in RUQ). Absent: rebound, rigid - Extremities Exam Extremities exam: Present: pedal edema (2++). Absent: calf tenderness, tenderness - Neurological Exam Neurological exam: Present: alert, oriented X3 - Psychiatric Psychiatric exam: Present: depressed Internal Medicine: Result - Labs CBC & Chem 7: 06/26/17 03:15 06/26/17 03:15 Labs: Short CBC 06/26/17 Range/Units 03:15 WBC 13.0 H (4.3-11.1) K/mcL Hgb 7.5 L D (11.5-15.4) g/dL Hct 24.3 L (35.3-44.9) % Plt Count 201 (140-400) K/mcL Neutrophils # 10.8 H (1.6-8.9) K/mcL BMP 06/25/17 06/26/17 06/26/17 09:27 03:15 03:15 Sodium 127 L 130 L 130 L Potassium 5.3 H D 5.5 H 5.5 H Chloride 100 100 100 Carbon Dioxide 24 19 18 L BUN 40 H 44 H 43 H Creatinine 2.68 H 3.02 H 3.03 H Glucose 192 H 92 92 Calcium 9.0 8.5 L 8.5 L Liver Function 06/26/17 06/26/17 Range/Units 03:15 03:15 Total Bilirubin 0.8 0.8 (0.2-1.2) mg/dL Direct Bilirubin 0.6 H (0.0-0.5) mg/dL AST 84 H 84 H (5-34) Units/L ALT 18 19 (0-55) Units/L Alkaline Phosphatase 166 H 166 H (38-126) Units/L Albumin 3.0 L D 3.0 L (3.5-5.0) g/dL - VTE Documentation of Mechanical Device: Intermittent pneumatic compression device Consult Discharge Plan - Plan Referrals: Mushtaq Oden MD [Primary Care Provider] -
[2017-06-26] MEDS ORDERED: *HR* Promethazine 25 MG/ML VIAL IVP PRN (13:43)
[2017-06-26] MEDS ORDERED: Levofloxacin 500 MG/100 ML 500 MG/100 ML BAG IVPB SCH (15:00)
--- NOTE | 2017-06-26 16:25 | Event Note ---
Date of Encounter: 06/26/17 Time of Encounter: 15:55 Patient transferred from 3A to 2A55 palliative care room. Oriented to room and assessed patients comfort. Patient reports pain is somewhat better with Dilaudid LABORATORY ENGINEER. Current rate at 0.2mg/10 min, total 8 mg/hr dose demand and 0.5mg continuous hr. Additional family continues to arrive and encouraged family to discuss code status. Patient and family still desire antibiotics and fluids as well as Full Code. Will continue to have discussions and make adjustments to LABORATORY ENGINEER as needed. Remains FULL CODE!
[2017-06-26] MEDS ORDERED: Furosemide 60 MG in 0.9 % Sodium Chloride 50 ML IVPB ONE (20:18)
[2017-06-26] MEDS ORDERED: methylPREDNISolone 125 MG/2 ML VIAL IVP ONE (20:19)
[2017-06-26] MEDS ORDERED: Furosemide 40 MG/4 ML VIAL ONE (20:41)
[2017-06-26] MEDS ORDERED: Furosemide 20 MG/2 ML VIAL IVP ONE (20:41)
[2017-06-26] MEDS ORDERED: Furosemide 100 MG/10 ML VIAL IVP ONE (20:45)
[2017-06-26] MEDS: Ipratropium/Albuterol Neb 3 ML IH SCH (21:02)
[2017-06-26] MEDS: Ondansetron 4 MG/2 ML VIAL IVP PRN (22:37)
[2017-06-27] MEDS: MetroNIDAZOLE 500 MG/100 ML 500 MG/100 ML BAG IVPB SCH ×3 (00:21→15:39)
[2017-06-27] MEDS: Albumin 25% 25gram/100mL 25 GM/100 ML IV.SOLN IVPB SCH (00:26)
[2017-06-27] MEDS: 0.9 % Sodium Chloride 1,000 ML IVC SCH ×2 (00:31→10:02)
[2017-06-27] MEDS: Ipratropium/Albuterol Neb 3 ML IH SCH ×4 (04:23→22:51)
[2017-06-27 05:38] LABS: Basophils % 0.1 %; Hematocrit 22.3 % (35.3-44.9); Hemoglobin 6.8 g/dL (11.5-15.4); Immature Granulocytes % 0.5 % (0-4); Lymphocytes # 0.3 K/mcL (0.6-4.6); Lymphocytes % 2.4 %; Mean Corpuscular HGB Conc 30.5 g/dL (31.6-35.5); Mean Corpuscular Hemoglobin 28.2 pg (28.0-33.3); Mean Corpuscular Volume 92.5 fL (83.0-100.0); Mean Platelet Volume 11.2 fL (9.4-12.4); Monocytes # 0.1 K/mcL (0.0-1.3); Monocytes % 1.2 %; Neutrophils # 11.1 K/mcL (1.6-8.9); Platelet Count 186 K/mcL (140-400); Red Blood Count 2.41 M/mcL (3.82-4.97); Red Cell Distribution Width 16.3 % (11.5-14.5); Segmented Neutrophils % 95.8 %
[2017-06-27 05:56] LABS: Albumin 3.3 g/dL (3.5-5.0); Albumin/Globulin Ratio 1.2 (1.1-2.2); Bilirubin,Total 0.9 mg/dL (0.2-1.2); Calcium 7.9 mg/dL (8.6-10.8); Globulin 2.8 g/dL (2.4-3.5); Magnesium 1.7 mg/dL (1.6-2.6); Potassium 6.3 mEq/L (3.5-4.5); Total Protein 6.1 g/dL (6.0-8.3)
[2017-06-27 06:14] LABS: Ferritin 1601 ng/ml (5-204)
[2017-06-27 06:27] LABS: Folate 12.4 ng/mL (7.0-31.4)
[2017-06-27] MEDS: *HR* Heparin 5,000 UNIT/ML VIAL SQ SCH ×2 (06:32→15:39)
--- NOTE | 2017-06-27 07:49 | Event Note ---
Date of Encounter: 06/27/17 Time of Encounter: 07:48 Patient elective care notes have been reviewed. Currently the patient appears to be resting comfortably. Her renal function is worse and she remains oliguric. I had a discussion with some of the family members this morning. They indicated that they do not wish to proceed with dialysis. I feel that this is an appropriate decision. Unfortunately nephrology has nothing else to offer. Nephrology will sign off. Please call again if needed.
--- NOTE | 2017-06-27 08:27 | Event Note ---
Date of Encounter: 06/27/17 Time of Encounter: 08:23 Discussed with POA () and family about current status of patient, including code status, anemia, hyperkalemia, and medications Family states: - Okay for blood trasnfusion - Okay for chest compressions in case of cardiac arrest. - Okay to keep Dilaudid PRINTED CIRCUIT PHOTOGRAPHER, no pain medication adjustmemt. - NO intubation - NO shock even if indicated per CPR protocol - NO dialysis
[2017-06-27] MEDS ORDERED: *HR* Dextrose 50 % in Water (Syg) 50 ML SYRINGE IVP ONE (08:30)
[2017-06-27] MEDS ORDERED: Insulin Human Regular 10 UNIT in 0.9 % Sodium Chloride 10 ML IV ONE (08:30)
--- NOTE | 2017-06-27 09:36 | Oncology Inp Progress Note ---
Date of Encounter: 06/26/17 Time of Encounter: 18:00 (1) SIRS (systemic inflammatory response syndrome) Current Visit: Yes Status: Acute Assessment and plan: Her neutrophil counts are coming down. Blood cultures have been negative. (2) Acute kidney injury Current Visit: Yes Status: Acute Assessment and plan: Creatinine increasing slowly currently 3.6. This is concerning. Her liver enzymes are mostly normal with mildly elevated AST of 129 alkaline phosphatase 140-150. Family decided on palliative care which is reasonable. Overall prognosis poor. (3) Pancreatic cancer Current Visit: Yes Status: Acute Assessment and plan: Prostatic pancreatic cancer with liver metastasis. Currently she is not a candidate for chemotherapy. Agree with palliative care. Overall prognosis poor Anemia. Hemoglobin 6.8. Agree with 2 units packed RBC transfusion. B12 and ferritin elevated. Folate normal Qualifiers: Pancreatic malignancy location: head of pancreas Qualified Code(s): C25.0 - Malignant neoplasm of head of pancreas Oncology: Subj Interval history: Metastatic pancreatic cancer with the biopsy confirmed liver metastasis. CT abdomen showed enlargement of pancreatic mass Her CA-19-9 has come down slowly from 222 on 03/28/2017 to about 70 range and please 15 on 06/23/2017. I cannot explain the reduction in CA 19 9 with progression of disease - Constitutional Vitals: Vital Signs Temp Pulse Resp BP Pulse Ox 06/27/17 00:59 97.7 F 103 16 132/65 95 06/26/17 21:02 20 96 06/26/17 20:38 98.5 F 122 17 88/65 94 06/26/17 16:53 96.3 F L 109 19 91/55 94 06/26/17 11:33 98.2 F 109 20 108/61 97 Intake and Output 06/26/17 06/27/17 06/27/17 23:59 07:59 15:59 Intake Total 200 / 200 1999 / 1999 0 / 0 Output Total 0 / 0 200 / 200 Balance 200 / 200 1800 / 1800 0 / 0 Intake: IV Fluids 200 / 200 1800 / 1800 0.9 % Sodium Chloride 1,000 ML 1600 / 1600 @ 100 mls/hr IVC .Q10H [facility] Rx#: [id number] Flexbumin 25 gm In 100 ml @ 60 100 / 100 100 / 100 mls/hr IVPB Q8HR [facility] Rx#: [id number] Flagyl Premix 500 MG/100 ML 500 100 / 100 100 / 100 mg In 100 ml @ 100 mls/hr IVPB Q8HR [facility] Rx#:[id number] Oral 0 / 0 200 / 200 0 / 0 Output: Urine 0 / 0 Catheter 200 / 200 Other: Meal WATER AND ICE CHIPS PER FAMILY Breakfast Percent of Meal Consumed 0% Exam: Decrease out of consciousness. Patient is on FORMULA CLERK pain medication. He is comfortable. Breathing is stable. Heart S1-S2 regular rate rhythm Oncology: Obj Data - Labs CBC & Chem 7: 06/27/17 05:08 06/27/17 05:08 Labs: Laboratory Results - last 24 hr 06/27/17 06/27/17 06/27/17 05:08 05:08 05:08 WBC 11.6 H RBC 2.41 L Hgb 6.8 L Hct 22.3 L MCV 92.5 MCH 28.2 MCHC 30.5 L RDW 16.3 H Plt Count 186 MPV 11.2 Immature Gran % 0.5 Seg Neutrophils % 95.8 Lymphocytes % 2.4 Monocytes % 1.2 Eosinophils % 0.0 Basophils % 0.1 Neutrophils # 11.1 H Lymphocytes # 0.3 L Monocytes # 0.1 Eosinophils # 0.0 Basophils # 0.0 Sodium Potassium Chloride Carbon Dioxide BUN Creatinine Est GFR ( Amer) Est GFR (Non-Af Amer) BUN/Creatinine Ratio Glucose Calculated Osmolality Calcium Magnesium Ferritin 1601 H Total Bilirubin AST ALT Alkaline Phosphatase Serum Total Protein Albumin Globulin Albumin/Globulin Ratio Vitamin B12 1350 H Folate 12.4 06/27/17 05:08 WBC RBC Hgb Hct MCV MCH MCHC RDW Plt Count MPV Immature Gran % Seg Neutrophils % Lymphocytes % Monocytes % Eosinophils % Basophils % Neutrophils # Lymphocytes # Monocytes # Eosinophils # Basophils # Sodium 129 L Potassium 6.3 H Chloride 101 Carbon Dioxide 18 L BUN 51 H Creatinine 3.67 H Est GFR ( Amer) 14 L Est GFR (Non-Af Amer) 12 L BUN/Creatinine Ratio 14 Glucose 106 H Calculated Osmolality 282 Calcium 7.9 L Magnesium 1.7 Ferritin Total Bilirubin 0.9 AST 123 H ALT 20 Alkaline Phosphatase 148 H Serum Total Protein 6.1 Albumin 3.3 L Globulin 2.8 Albumin/Globulin Ratio 1.2 Vitamin B12 Folate Consult Discharge Plan - Plan Referrals: Mushtaq Oden MD [Primary Care Provider] -
[2017-06-27 10:25] LABS: Transferrin 75 mg/dL (180-382)
[2017-06-27] MEDS ORDERED: 0.9 % Sodium Chloride 1,000 ML IVC SCH (10:29)
--- NOTE | 2017-06-27 10:38 | Palliative Progress Note ---
Date of Encounter: 06/27/17 Time of Encounter: 09:50 - Assessment and plan (1) Acute kidney injury Current Visit: Yes Status: Acute Assessment and plan: Nephrology has now signed off as the family said no dialysis. Kidneys do appear to be failing, continue to watch. Family is moving towards comfort care. CODE STATUS changed today noted. (2) Acute pain Current Visit: Yes Status: Acute Assessment and plan: Continue current drip, as the patient does seem to be very comfortable (3) Goals of care, counseling/discussion Current Visit: Yes Status: Acute Assessment and plan: family feels that they have been getting very conflicting medical information. They are very upset over this. I have assured them that I will check with oncology today to find out why she is not eligible for palliative chemotherapy, however I believe this is probably due to her overall condition and especially the fact that her kidneys are worsening in the do not wish to have dialysis. Her status is now DNR CCA DNI. Family feels that they had made that clear prior , however according to the medical staff that I have spoken to okay with compressions only but no intubation at this point they understand there is no compressions either therefore DNR a CCA DNI. I did discuss hospice with the family. Apparently the patient had told them in the past she wanted no part of hospice and the fact that she is not able to enter into the discussion at this time hospice is off the table. (4) Hyperkalemia Current Visit: Yes Status: Acute Assessment and plan: Have discussed with the hospitalist team still treating the hyperkalemia aggressively, however given the overall condition this is probably necessary in the big picture. However at this time the family is having a very difficult time with the overall process and I recommend that we continue this least until after I could discuss the case with oncology. (5) Pancreatic cancer Current Visit: Yes Status: Acute Assessment and plan: Metastatic pancreatic cancer, patient is certainly hospice eligible if she were interested, at this time family is clear that she is not. Possibility exists of palliative chemotherapy, however the family's been told that since she cannot stand there is no basis for giving her palliative chemotherapy I will check with oncology. Qualifiers: Pancreatic malignancy location: head of pancreas Qualified Code(s): C25.0 - Malignant neoplasm of head of pancreas (6) Protein-calorie malnutrition, moderate Current Visit: Yes Status: Acute Assessment and plan: She is not eating or drinking at this point in time. Patient is going into renal failure at this time. I do not believe that there is any place in this plan of care with regard to the protein calorie malnutrition we can actively intervene and make a significant difference therefore we will continue to watch. - Time Spent With Patient Total time spent is greater than 50% in coordination of care (as documented) at patient's floor/unit and/or counseling patient: - Subjective Interval history: Her family patient is comfortable at this time. Did have some nausea last night but been sleeping ever since. - Constitutional Vitals: Abnormal lab results WBC 11.6 K/mcL (4.3-11.1) H 06/27/17 05:08 RBC 2.41 M/mcL (3.82-4.97) L 06/27/17 05:08 Hgb 6.8 g/dL (11.5-15.4) L 06/27/17 05:08 Hct 22.3 % (35.3-44.9) L 06/27/17 05:08 MCHC 30.5 g/dL (31.6-35.5) L 06/27/17 05:08 RDW 16.3 % (11.5-14.5) H 06/27/17 05:08 Neutrophils # 11.1 K/mcL (1.6-8.9) H 06/27/17 05:08 Lymphocytes # 0.3 K/mcL (0.6-4.6) L 06/27/17 05:08 Sodium 129 mEq/L (136-145) L 06/27/17 05:08 Potassium 6.3 mEq/L (3.5-4.5) H 06/27/17 05:08 Carbon Dioxide 18 mEq/L (19-29) L 06/27/17 05:08 BUN 51 mg/dL (7-20) H 06/27/17 05:08 Creatinine 3.67 mg/dL (0.57-1.11) H 06/27/17 05:08 Est GFR ( Amer) 14 (> 60) L 06/27/17 05:08 Est GFR (Non-Af Amer) 12 (> 60) L 06/27/17 05:08 Glucose 106 mg/dL (70-99) H 06/27/17 05:08 POC Glucose 128 (58-89) H 06/25/17 14:23 Calcium 7.9 mg/dL (8.6-10.8) L 06/27/17 05:08 Transferrin 75 mg/dL (180-382) L 06/27/17 05:08 Ferritin 1601 ng/ml (5-204) H 06/27/17 05:08 Direct Bilirubin 0.6 mg/dL (0.0-0.5) H 06/26/17 03:15 AST 123 Units/L (5-34) H 06/27/17 05:08 Alkaline Phosphatase 148 Units/L (38-126) H 06/27/17 05:08 Albumin 3.3 g/dL (3.5-5.0) L 06/27/17 05:08 Vitamin B12 1350 pg/mL (213-816) H 06/27/17 05:08 Urine Color Red (Yellow) A 06/24/17 02:23 Ur Specific [place]ane 1.027 (1.010-1.025) H 06/24/17 02:23 Urine Ketones Trace mg/dL (Negative) H 06/24/17 02:23 Urine Nitrite Positive (Negative) A 06/24/17 02:23 Urine Bilirubin Small (Negative) H 06/24/17 02:23 Ur Leukocyte Esterase Small (Negative) H 06/24/17 02:23 Ur Squamous Epith Cells Many per lpf (None-Few) H 06/24/17 02:23 Ur Culture Indicated? YES (NO) A 06/24/17 02:23 General appearance: Present: no acute distress - Head Head exam: Present: atraumatic, normal inspection - Eye Eye exam: Present: normal appearance - ENT ENT exam: Present: mucous membranes moist - Respiratory Respiratory exam: Present: decreased breath sounds - Cardiovascular Cardiovascular exam: Present: RRR, tachycardia - GI/Abdominal GI/Abdominal exam: Present: hypoactive bowel sounds, soft. Absent: tenderness ( To mild palpation) - Extremities Exam Extremities exam: Present: pedal edema. Absent: normal inspection, tenderness - Neurological Exam Neurological exam: Present: altered - Psychiatric Psychiatric exam: Absent: agitated, anxious - Skin Skin exam: Present: dry, warm Palliative Quality Palliative Quality: Screen for Code Status: Yes, Screen for Goals of Care: Yes, Screen for Pain: Yes, If Pain Regimen Started, Initiate Bowel Regimen: Yes, Screen for Nausea/Vomitting: Yes Code Status: 06/27/17 08:11 FULL [Resuscitation Status: Active] [RES] Routine Comment: OKAY FOR CHEST COMPRESSION, NO INTUBATION/NO SHOCK Resuscitation Status: Full Code FULL [Resuscitation Status: Active] [RES] Routine Comment: OKAY FOR CHEST COMPRESSION, NO INTUBATION/NO SHOCK Resuscitation Status: [id number] - Labs CBC & Chem 7: 06/27/17 05:08 06/27/17 05:08 Labs: Laboratory Results - last 24 hr 06/27/17 06/27/17 06/27/17 05:08 05:08 05:08 WBC 11.6 H RBC 2.41 L Hgb 6.8 L Hct 22.3 L MCV 92.5 MCH 28.2 MCHC 30.5 L RDW 16.3 H Plt Count 186 MPV 11.2 Immature Gran % 0.5 Seg Neutrophils % 95.8 Lymphocytes % 2.4 Monocytes % 1.2 Eosinophils % 0.0 Basophils % 0.1 Neutrophils # 11.1 H Lymphocytes # 0.3 L Monocytes # 0.1 Eosinophils # 0.0 Basophils # 0.0 Sodium Potassium Chloride Carbon Dioxide BUN Creatinine Est GFR ( Amer) Est GFR (Non-Af Amer) BUN/Creatinine Ratio Glucose Calculated Osmolality Calcium Magnesium Transferrin 75 L Ferritin 1601 H Total Bilirubin AST ALT Alkaline Phosphatase Serum Total Protein Albumin Globulin Albumin/Globulin Ratio Vitamin B12 1350 H Folate 12.4 Blood Type Antibody Screen Crossmatch 06/27/17 06/27/17 05:08 09:27 WBC RBC Hgb Hct MCV MCH MCHC RDW Plt Count MPV Immature Gran % Seg Neutrophils % Lymphocytes % Monocytes % Eosinophils % Basophils % Neutrophils # Lymphocytes # Monocytes # Eosinophils # Basophils # Sodium 129 L Potassium 6.3 H Chloride 101 Carbon Dioxide 18 L BUN 51 H Creatinine 3.67 H Est GFR ( Amer) 14 L Est GFR (Non-Af Amer) 12 L BUN/Creatinine Ratio 14 Glucose 106 H Calculated Osmolality 282 Calcium 7.9 L Magnesium 1.7 Transferrin Ferritin Total Bilirubin 0.9 AST 123 H ALT 20 Alkaline Phosphatase 148 H Serum Total Protein 6.1 Albumin 3.3 L Globulin 2.8 Albumin/Globulin Ratio 1.2 Vitamin B12 Folate Blood Type O POSITIVE Antibody Screen NEGATIVE Crossmatch See Detail Consult Discharge Plan - Plan Referrals: Mushtaq Oden MD [Primary Care Provider] -
[2017-06-27 10:42] LABS: % Iron Saturation 14 % (15-50); Iron 15 mcg/dL (50-170)
[2017-06-27 10:44] LABS: Lactate Dehydrogenase 627 Units/L (159-327)
[2017-06-27] MEDS ORDERED: 0.9 % Sodium Chloride 250 ML ONE (11:03)
[2017-06-27] MEDS: Ondansetron 4 MG/2 ML VIAL IVP PRN (12:38)
[2017-06-27] MEDS: *HR* LORazepam 2 MG/ML VIAL IVP PRN (13:34)
[2017-06-27 13:44] VITALS: BP 104/72
--- NOTE | 2017-06-27 13:52 | Event Note ---
Date of Encounter: 06/27/17 Time of Encounter: 11:15 d/w patients family (pt not concious) about the reason why oncology was not going to offer any therapy was multifactorial due to the overall condition of the patient both in terms of her poor performance status as well as her comorbidities and how she is doing medically. The seem to Really understand at this point. CODE STATUS is already established a DNR CCA DNI. They would very much like to concentrate on comfort only I did discuss with them the possibility of hospice again the patient's had already told them that she would not want hospice essentially the family would like comfort care, only at this time. limit blood draws limited vital signs and just concentrate on keeping her comfortable. I have discussed this with the hospitalist who will try to do the best that he can with this. I did tell them that this was essentially hospice type care without calling hospice and this may not be able to be continued in the hospital unless she is in hospice we will watch and see.
[2017-06-27] MEDS ORDERED: Scopolamine Patch 1.5 MG PATCH.TD72 TD SCH (14:45)
[2017-06-27] MEDS ORDERED: Atropine Sulfate 1% 40 DROP/2 ML BOTTLE SL PRN (14:45)
--- NOTE | 2017-06-27 21:29 | Internal Med Progress Note ---
Date of Encounter: 06/27/17 Time of Encounter: 08:32 - Assessment and plan (1) SIRS (systemic inflammatory response syndrome) Current Visit: Yes Status: Acute Assessment and plan: Concern for cholangitis especially with recent history she did meet SIRS criteria with elevated WBC, and sinus tachycardia WBC trending down Reviewed CT of Abd and Pelvis - Increased pancreatic head mass, rt sided pleural effusion, moderate body wall anasarca. Cont empirical abx Levaquin + Flagyl - Renally dosed. Treatment of infection can provide patient with comfort by treating acute disease. (2) Hyperkalemia Current Visit: Yes Status: Acute Assessment and plan: Potassium continues to increase, now 6.3 (was 5.5). She has complicated situation limiting treatment: Family members do not wish to proceed with dialysis. Lasix may worsen function significantly as she is oliguric. She is not able to swallow currently and so cannot give Kayexalate. We will use insulin along with glucose but this will only temporarily decrease serum potassium levels. Limit frequent potassium rechecks as family requests to minimize lab draws to provide patient with more comfort. (3) Acute kidney injury Current Visit: Yes Status: Acute Assessment and plan: Worsening Cr - today 3.67 (was 3.03) Still severe oliguric; made 400 cc in past 24 hours. Nephro consulted, patient not candidate for dialysis. Family prefers comfort over dialysis. Patient could use fluid for SREE but given she is fluid overloaded, we will decrease IVF rate to 25 ml/hr. 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 Treatments to excrete potassium are limited due to several co-morbidities. (4) Cancer associated pain Current Visit: Yes Status: Acute Assessment and plan: RUQ pain mostly cancer related Spoke to Heme Onc Dr. Dyer, currently not a good candidate for palliative chemotherapy Palliative consulted and following, recommendations appreciated. Continue Dilaudid pump. Previous exam was reviewed and noted that patient was alert yesterday. Now she appears somnolent but in no acute distress. If she exhibits distress and is not able to use [employer]ING [employer] LEADER pump, may have to revisit routes of pain administration. (5) Protein-calorie malnutrition, moderate Current Visit: Yes Status: Acute Assessment and plan: Her albumin levels are low she does have 3rd spacing due to hypoalbunemia encourage more protein supplements Nutrition consulted also started on Albumin supplements (6) Pancreatic cancer Current Visit: Yes Status: Acute Qualifiers: Pancreatic malignancy location: head of pancreas Qualified Code(s): C25.0 - Malignant neoplasm of head of pancreas (7) Essential hypertension Current Visit: No Status: Acute Assessment and plan: Patient blood pressure is low and occasionally lower normal limits and so no antihypertensives are given. (8) GERD (gastroesophageal reflux disease) Current Visit: No Status: Acute Assessment and plan: on PPI Qualifiers: Esophagitis presence: without esophagitis Qualified Code(s): K21.9 - Gastro -esophageal reflux disease without esophagitis - Subjective Interval history: Patient resting comfortably, not easily arousable at time of evaluation. Sister present in room along with other family members. Patient's sister does note that she has occasional agonal breathing episodes but currently mild. No acute events overnight. [employer]ING [employer] LEAD[employer] pump within reach. - Constitutional Vitals: Temp Pulse Resp BP Pulse Ox 97.4 F L 115 12 104/72 95 06/27/17 13:42 06/27/17 13:42 06/27/17 16:25 06/27/17 13:42 06/27/17 16:25 Exam: Patient appears comfortable. Appears stuporous, responding to some verbal commands and stimuli but easily drowsy afterwords. [employer] LEADER pump within reach. - Head Head exam: Present: atraumatic, normal inspection - Neck Neck exam general surgery: Present: supple - Respiratory Respiratory exam: Present: decreased breath sounds. Absent: rales, respiratory distress, rhonchi, wheezes - Cardiovascular Cardiovascular exam: Present: RRR, +S1, +S2. Absent: systolic murmur - GI/Abdominal GI/Abdominal exam: Present: normal bowel sounds, soft, tenderness (Severe tenderness in RUQ). Absent: rebound, rigid - Extremities Exam Extremities exam: Present: pedal edema (2+). Absent: calf tenderness, tenderness - Neurological Exam Neurological exam: Present: limited exam as patient is stuporous Internal Medicine: Result - Labs CBC & Chem 7: 06/27/17 05:08 06/27/17 05:08 Labs: Short CBC 06/27/17 Range/Units 05:08 WBC 11.6 H (4.3-11.1) K/mcL Hgb 6.8 L (11.5-15.4) g/dL Hct 22.3 L (35.3-44.9) % Plt Count 186 (140-400) K/mcL Neutrophils # 11.1 H (1.6-8.9) K/mcL BMP 06/27/17 05:08 Sodium 129 L Potassium 6.3 H Chloride 101 Carbon Dioxide 18 L BUN 51 H Creatinine 3.67 H Glucose 106 H Calcium 7.9 L Liver Function 06/27/17 Range/Units 05:08 Total Bilirubin 0.9 (0.2-1.2) mg/dL AST 123 H (5-34) Units/L ALT 20 (0-55) Units/L Alkaline Phosphatase 148 H (38-126) Units/L Albumin 3.3 L (3.5-5.0) g/dL - VTE Documentation of Mechanical Device: Intermittent pneumatic compression device Consult Discharge Plan - Plan Referrals: Mushtaq Oden MD [Primary Care Provider] -
[2017-06-28] MEDS: MetroNIDAZOLE 500 MG/100 ML 500 MG/100 ML BAG IVPB SCH ×2 (00:05→08:54)
[2017-06-28] MEDS: Ondansetron 4 MG/2 ML VIAL IVP PRN (00:05)
[2017-06-28] MEDS: *HR* LORazepam 2 MG/ML VIAL IVP PRN (02:44)
[2017-06-28 03:59] LABS: Basophils % 0.1 %; Hematocrit 26.9 % (35.3-44.9); Immature Granulocytes % 0.6 % (0-4); Lymphocytes # 0.8 K/mcL (0.6-4.6); Mean Corpuscular HGB Conc 31.6 g/dL (31.6-35.5); Mean Corpuscular Hemoglobin 28.2 pg (28.0-33.3); Mean Corpuscular Volume 89.4 fL (83.0-100.0); Mean Platelet Volume 11.2 fL (9.4-12.4); Monocytes # 1.4 K/mcL (0.0-1.3); Monocytes % 8.5 %; Neutrophils # 13.6 K/mcL (1.6-8.9); Platelet Count 167 K/mcL (140-400); Red Blood Count 3.01 M/mcL (3.82-4.97); Red Cell Distribution Width 16.1 % (11.5-14.5); Segmented Neutrophils % 85.8 %
[2017-06-28 04:01] LABS: Calcium 7.9 mg/dL (8.6-10.8); Potassium 5.7 mEq/L (3.5-4.5)
[2017-06-28] MEDS: Ipratropium/Albuterol Neb 3 ML IH SCH ×2 (04:04→10:57)
[2017-06-28 04:15] LABS: Hemoglobin 8.5 g/dL (11.5-15.4)
[2017-06-28] MEDS: *HR* Heparin 5,000 UNIT/ML VIAL SQ SCH (05:20)
--- NOTE | 2017-06-28 07:05 | Electrocardiograph Report ---
[place] [id number] Test Date: 2017-06-25 Pat Name: Ivett Hopson Department: 115 Room: 2A Gender: F Clinical Nurse Manager: LATOYA : [id number] Requested By: Elian Montelongo Order Number: [id number] Reading MD: Aura Howe Measurements Intervals [place] Rate: 98 P: 85 AK: 189 QRS: -20 QRSD: 101 T: 78 QT: 360 QTc: 415 Interpretive Statements SINUS RHYTHM WITH SINUS ARRHYTHMIA NONSPECIFIC T-WAVE ABNORMALITY Electronically Signed On 06-28-2017 7:03:59 EST by Aura Howe
--- NOTE | 2017-06-28 11:00 | Palliative Progress Note ---
Date of Encounter: 06/28/17 Time of Encounter: 07:35 - Assessment and plan (1) Acute kidney injury Current Visit: Yes Status: Acute Assessment and plan: Nephrology has now signed off as the family said no dialysis. Kidneys do appear to be failing, continue to watch. Family is moving towards comfort care. CODE STATUS changed today noted. Any function continues to decline. Total output yesterday of 400 mL. (2) Acute pain Current Visit: Yes Status: Deleted Assessment and plan: Continue current drip, as the patient does seem to be very comfortable (3) Goals of care, counseling/discussion Current Visit: Yes Status: Acute Assessment and plan: Patient continues to be DNR CCA DNI. Goals of care patient had told family in the past that she would not want hospice. The patient is unable to speak for herself and therefore the family is with her last known intact. Family does seem to wish to have comfort care only. I have discussed with them about her questing is essentially hospice care. I will work with the hospitalist to try to provide for care only, however patient not being hospice I am not sure how far we can go with this. We will continue to try to work with the situation as is. Recommendations today to the family were to stop all aggressive care including antibiotics no further transfusions patient's potassium is creeping up, family had already said they do not want to treat that any further I think that we are at a point where we should go comfort care only. (4) Hyperkalemia Current Visit: Yes Status: Acute Assessment and plan: Stress with patient's family yesterday about aggressive treatment for hyperkalemia do not feel this is necessary any further especially since we are not going to entertain dialysis for the patient. Discussed with patient's family and with hospitalist.. (5) Pancreatic cancer Current Visit: Yes Status: Acute Assessment and plan: Metastatic pancreatic cancer, patient is certainly hospice eligible if she were interested, at this time family is clear that she is not. Possibility exists of palliative chemotherapy, however the family's been told that since she cannot stand there is no basis for giving her palliative chemotherapy I will check with oncology. As above I did discuss with oncology yesterday the overall situation. The patient is not being offered palliative chemotherapy due to a very poor performance scale, as well as overall comorbidities. It is felt by oncology and I concur, that at this point palliative chemotherapy would probably make her worse rather than better. And Deric her of any kind of quality time. 4 That reason we are not offering it. Qualifiers: Pancreatic malignancy location: head of pancreas Qualified Code(s): C25.0 - Malignant neoplasm of head of pancreas (6) Protein-calorie malnutrition, moderate Current Visit: Yes Status: Acute Assessment and plan: She is not eating or drinking at this point in time. Patient is going into renal failure at this time. I do not believe that there is any place in this plan of care with regard to the protein calorie malnutrition we can actively intervene and make a significant difference therefore we will continue to watch. As above continue to watch. I do not believe that there is any intervention here that is appropriate. - Time Spent With Patient Total time spent is greater than 50% in coordination of care (as documented) at patient's floor/unit and/or counseling patient: - Subjective Interval history: Her family states that patient is comfortable at this time. Did have some nausea last night but been sleeping ever since, also had some itching last night. Overall is comfortable.. - Constitutional Vitals: Abnormal lab results WBC 15.9 K/mcL (4.3-11.1) H 06/28/17 03:30 RBC 3.01 M/mcL (3.82-4.97) L 06/28/17 03:30 Hgb 8.5 g/dL (11.5-15.4) L D 06/28/17 03:30 Hct 26.9 % (35.3-44.9) L 06/28/17 03:30 RDW 16.1 % (11.5-14.5) H 06/28/17 03:30 Neutrophils # 13.6 K/mcL (1.6-8.9) H 06/28/17 03:30 Monocytes # 1.4 K/mcL (0.0-1.3) H 06/28/17 03:30 Sodium 129 mEq/L (136-145) L 06/28/17 03:30 Potassium 5.7 mEq/L (3.5-4.5) H 06/28/17 03:30 Carbon Dioxide 15 mEq/L (19-29) L 06/28/17 03:30 BUN 62 mg/dL (7-20) H 06/28/17 03:30 Creatinine 4.13 mg/dL (0.57-1.11) H 06/28/17 03:30 Est GFR ( Amer) 13 (> 60) L 06/28/17 03:30 Est GFR (Non-Af Amer) 10 (> 60) L 06/28/17 03:30 POC Glucose 128 (58-89) H 06/25/17 14:23 Calcium 7.9 mg/dL (8.6-10.8) L 06/28/17 03:30 Iron 15 mcg/dL (50-170) L 06/27/17 05:08 % Saturation 14 % (15-50) L 06/27/17 05:08 Transferrin 75 mg/dL (180-382) L 06/27/17 05:08 Ferritin 1601 ng/ml (5-204) H 06/27/17 05:08 Direct Bilirubin 0.6 mg/dL (0.0-0.5) H 06/26/17 03:15 AST 123 Units/L (5-34) H 06/27/17 05:08 Alkaline Phosphatase 148 Units/L (38-126) H 06/27/17 05:08 Lactate Dehydrogenase 627 Units/L (159-327) H 06/27/17 05:08 Albumin 3.3 g/dL (3.5-5.0) L 06/27/17 05:08 Vitamin B12 1350 pg/mL (213-816) H 06/27/17 05:08 Urine Color Red (Yellow) A 06/24/17 02:23 Ur Specific [place] 1.027 (1.010-1.025) H 06/24/17 02:23 Urine Ketones Trace mg/dL (Negative) H 06/24/17 02:23 Urine Nitrite Positive (Negative) A 06/24/17 02:23 Urine Bilirubin Small (Negative) H 06/24/17 02:23 Ur Leukocyte Esterase Small (Negative) H 06/24/17 02:23 Ur Squamous Epith Cells Many per lpf (None-Few) H 06/24/17 02:23 Ur Culture Indicated? YES (NO) A 06/24/17 02:23 General appearance: Present: no acute distress - Head Head exam: Present: atraumatic, normal inspection - Eye Eye exam: Present: normal appearance - ENT ENT exam: Present: mucous membranes moist - Respiratory Respiratory exam: Present: decreased breath sounds - Cardiovascular Cardiovascular exam: Present: RRR - GI/Abdominal GI/Abdominal exam: Present: soft. Absent: tenderness - Extremities Exam Extremities exam: Present: pedal edema - Neurological Exam Neurological exam: Present: altered - Psychiatric Psychiatric exam: Absent: agitated, anxious - Skin Skin exam: Present: dry, warm Palliative Quality Palliative Quality: Screen for Code Status: Yes, Screen for Goals of Care: Yes, Screen for Pain: Yes, If Pain Regimen Started, Initiate Bowel Regimen: Yes, Screen for Nausea/Vomitting: Yes Code Status: 06/27/17 08:11 FULL [Resuscitation Status: Active] [RES] Routine Comment: OKAY FOR CHEST COMPRESSION, NO INTUBATION/NO SHOCK Resuscitation Status: Full Code FULL [Resuscitation Status: Active] [RES] Routine Comment: OKAY FOR CHEST COMPRESSION, NO INTUBATION/NO SHOCK Resuscitation Status: [id number] - Labs CBC & Chem 7: 06/28/17 03:30 06/28/17 03:30 Labs: Laboratory Results - last 24 hr 06/27/17 06/28/17 06/28/17 09:27 03:30 03:30 WBC 15.9 H RBC 3.01 L Hgb 8.5 L D Hct 26.9 L MCV 89.4 MCH 28.2 MCHC 31.6 RDW 16.1 H Plt Count 167 MPV 11.2 Immature Gran % 0.6 Seg Neutrophils % 85.8 Lymphocytes % 5.0 Monocytes % 8.5 Eosinophils % 0.0 Basophils % 0.1 Neutrophils # 13.6 H Lymphocytes # 0.8 Monocytes # 1.4 H Eosinophils # 0.0 Basophils # 0.0 Sodium 129 L Potassium 5.7 H Chloride 102 Carbon Dioxide 15 L BUN 62 H Creatinine 4.13 H Est GFR ( Amer) 13 L Est GFR (Non-Af Amer) 10 L BUN/Creatinine Ratio 15 Glucose 85 Calculated Osmolality 285 Calcium 7.9 L Blood Type O POSITIVE Antibody Screen NEGATIVE Crossmatch See Detail Consult Discharge Plan - Plan Referrals: Mushtaq Oden MD [Primary Care Provider] -
--- NOTE | 2017-06-28 12:44 | Discharge Summary ---
Date of Encounter: 06/28/17 Time of Encounter: 12:43 - Discharge Diagnosis (1) Cancer associated pain Priority: Primary Status: Acute (2) SIRS (systemic inflammatory response syndrome) Priority: Secondary Status: Acute (3) Acute kidney injury Priority: Secondary Status: Acute (4) Hyperkalemia Priority: Secondary Status: Acute (5) Pancreatic cancer Priority: Secondary Status: Chronic Qualifiers: Pancreatic malignancy location: head of pancreas Qualified Code(s): C25.0 - Malignant neoplasm of head of pancreas (6) Protein-calorie malnutrition, moderate Priority: Secondary Status: Acute (7) Essential hypertension Priority: Secondary Status: Chronic (8) GERD (gastroesophageal reflux disease) Priority: Secondary Status: Chronic Qualifiers: Esophagitis presence: without esophagitis Qualified Code(s): K21.9 - Gastro -esophageal reflux disease without esophagitis - Discharge Medications Home Medications: DiphenhydraMINE [Benadryl] 12.5 mg IVP Q6HR PRN vial 06/28/17 [Rx] HYDROmorphone 20 MG/20 ML INTERMEDIATE DESIGNER [Dilaudid 20 MG/20 ML INTERMEDIATE DESIGNER] 1 each IVC PROTOCOL PRN cra.vial 06/28/17 [Rx] Heparin 5,000 unit SQ Q12HCO vial 06/28/17 [Rx] Ipratropium/Albuterol Neb [Duoneb] 3 ml IH [id number] inhsol 06/28/17 [Rx] LORazepam [Ativan] 0.5 mg IVP Q8HR PRN vial 06/28/17 [Rx] Levothyroxine [Synthroid] 75 mcg PO 0630 tablet 06/28/17 [Rx] Lidocaine Patch [Lidoderm 5% patch] 1 each TP DAILY adh..patch 06/28/17 [Rx] Naloxone [Narcan] 0.4 mg IVP Q2MIN PRN inj 06/28/17 [Rx] Omeprazole [PriLOSEC] 20 mg PO 0630 capsule.dr 06/28/17 [Rx] Ondansetron [Zofran] 4 mg IVP Q4HR PRN vial 06/28/17 [Rx] Promethazine [Phenergan] 12.5 mg IVP Q6HR PRN vial 06/28/17 [Rx] Scopolamine Patch [Transderm-Scop] 1.5 mg TD Q72H patch.td72 06/28/17 [Rx] Allergies/Adverse Reactions: 3 Allergy/AdvReac Type Severity Reaction Status Date / Time codeine Allergy Unknown See Verified 06/23/17 23:16 Comments Date of admission: 06/24/17 03:37 Primary care physician: Mushtaq Oden MD Consults: 06/25/17 09:30 Consult to Nephrology [CONS] Routine Consulting Provider: Kidney Slime/RUPA/LINDA/CHRISTINE Reason for Consult: SREE Call Completed: Yes 06/25/17 15:40 Consult to Nephrology [CONS] Routine Consulting Provider: Kidney & HTN Spclst DEISI Reason for Consult: SREE, Hyperkalemia Call Completed: Yes 06/26/17 09:49 Consult to Palliative Care [CONS] Routine Comment: Consulting Provider: Palliative Care Slime Reason for Consult: Comfort care Call Completed: Yes Discharging clinician: Augustine Joyner - Patient Status Disposition: Hospice - Medical Facility Condition: Good Functional capacity at discharge: bed bound Overall status at discharge: patient is not back to baseline - Discharge Instructions Follow Up With: Mushtaq Oden MD [Primary Care Provider] - - Diet and Activity Activity: increase activity as tolerated Diet: advance to your usual diet Hospital course: Ms. Hopson is a 81 year old female with metastatic pancreatic cancer who presented with acute on subacute right upper quadrant pain she was established patient was recently established with oncology and prescribed by mouth Dilaudid for pain control. However, her pain was not well-controlled and became worse leading to admission. Of note, she was recently at [facility] in mid May 2017 for cholangitis status post stent placement. She completed antibiotics approximately 1 week prior to admission. Patient was admitted as she was intractable pain, SREE, SIRS +. Oncology was consulted as there was suspicion that patient had metastatic disease to the liver. His x-ray showed left basilar lucency which could have represented a large bulla, hiatal hernia, or elevated diaphragm. She had leukocytosis on admission with white count of 16.4. Hemoglobin initially was 10.0. Creatinine was 1.4 to with sodium low at 1:30 and potassium were elevated initially at 5.0. She was on MS Contin long- acting with IV Dilaudid for breakthrough pain. She was given IV fluid in regards to her acute kidney injury with close monitoring. He was started on empiric therapy given concern for cholangitis based on her history. Levaquin and Flagyl were started. Initial plan with cardiology was to do palliative chemotherapy as an outpatient. Renal injury continued to worsen so along with hyperkalemia and hyponatremia and so was developing significant anasarca, and IV fluid hydration was judiciously continued in order to perfuse kidneys. Albumin was used as a volume administrative support assistant. Hyperkalemia was initially managed with Kayexalate, insulin/glucose/calcium gluconate. This did transiently decrease but serum potassium did increase once again. Palliative service was consulted. Generalized pain was persistent and so she was started on a Dilaudid INTERMEDIATE DESIGNER pump , which did seem to be effective in treating her pain. Nephrology evaluated patient and family members declined dialysis. As some time the patient was unable to swallow and so Kayexalate cannot be given. Family opted out of continuing aggressive medical management to adjust potassium levels. Patient did become oliguric, and Lasix was not given due to weakness. Patient was anemic with hemoglobin that did get as low as 6.8, and was transfused 2 units of packed red blood cells. Family did opt out of continuing aggressive management of hyperkalemia, anemia, and possible infection (suspected cholangitis). After discussion patient's decided to discontinue antibiotics. The patient's family did decide to transfer patient to hospice service. She was discharged to hospice service and remains inpatient to continue treatment. - Time Spent with Patient Total time spent providing and/or coordinating discharge services: - Constitutional Vitals: Temp Pulse Resp BP Pulse Ox 97.4 F L 115 12 104/72 90 06/27/17 13:42 06/27/17 13:42 06/28/17 10:57 06/27/17 13:42 06/28/17 10:57 General appearance: Present: mild distress (pain), A&O X 3 - VTE Documentation of Mechanical Device: Intermittent pneumatic compression device
== END 2017-06-28 14:53 | disposition hospice, inpatient (51) | DRG 435 ==
LOC: EMEROO 23:10 → 3ANU 06-24 03:37 → SUATTDRO 06-24 03:37 → 3ANU 06-24 04:10 → 2ANU 06-26 15:36
PROVIDERS: ADMIT Internal Medicine Hematology & Oncology; ATTEND Student in an Organized Health Care Education/Training Program